=== PATIENT | female | born 1985 | race Caucasian/White ===

== ENCOUNTER 2017-01-23 09:57 | Emergency (ER) | payer BC ==
[~2017-01-23] VITALS: Ht 160 cm; Wt 54.0 kg
[2017-01-23 10:00] VITALS: BP 120/74; PULSE 115; RESP 16; TEMP 98.4; O2SAT 96
--- NOTE | 2017-01-23 10:09 | PD ---
HPI Chief Complaint: GI Complaint Time Seen by Provider: 10:09 Travel History International Travel<30 days: No Contact w/Intl Traveler<30days: No Traveled to known affect area: No History of Present Illness HPI 31-year-old female presents the emergency Department with history of one week of UTI symptoms which worsened yesterday with hematuria and discomfort. Patient called her primary care physician ordered labs but did not actually see the patient. She was treated empirically with Macrodantin. She states she was told she was not according to her labs yesterday. Patient states since taking the Macrodantin she's become more nauseous and complaining of generalized abdominal discomfort with some left flank pain. Patient states he took some Zofran she had for her daughter this morning and was able to take some ibuprofen with improvement of her overall symptoms. Patient has felt feverish with a fever 102 reported. Currently she is not febrile. Patient states she has not thrown up since taking the Zofran approximate 7:30 this morning. Patient states she has had some vaginal spotting but denies vaginal discharge or pelvic pain at this time. Patient denies any known drug allergies. PFSH Past Medical History ?: Not Social History Alcohol Use: Yes Tobacco Use: No Substance Use: No Allergies-Medications (Allergen,Severity, Reaction): Coded Allergies: No Known Allergies (Unverified , 01/23/17) Reported Meds & Prescriptions Reported Meds & Active Scripts Active Zofran (Ondansetron HCl) 4 Mg Tab 4 Mg PO Q6HR PRN Cephalexin 500 Mg Cap 500 Mg PO Q8H Reported Fluoxetine (Fluoxetine HCl) 10 Mg Tab 10 Mg PO DAILY Macrobid (Nitrofurantoin Monoh/Nitrofur Macro) 100 Mg Cap 100 Mg PO BID Review of Systems Except as stated in HPI: all other systems reviewed are Neg General / Constitutional: Positive: Fever, Chills Eyes: No: Visual changes HENT: No: Headaches, Vertigo, Lightheadedness, Sore Throat, Rhinitis, Rhinorrhea, Congestion, Nosebleed, Neck Stiffness, Neck Pain, Ear Discharge, Earache Cardiovascular: No: Chest Pain or Discomfort Respiratory: No: Shortness of Breath Gastrointestinal: Positive: Nausea, Vomiting, Abdominal Pain (previously but now improved.), No: Diarrhea Genitourinary: Positive: Dysuria, Hematuria, Flank Pain (mild left flank.), Vaginal Bleeding, No: Pelvic Pain Musculoskeletal: No: Pain Skin: No Rash Neurologic: No: Weakness Psychiatric: No: Depression Endocrine: No: Polydipsia Hematologic/Lymphatic: No: Easy Bruising Physical Exam Narrative GENERAL: Patient appears in mild distress. SKIN: Warm and dry. Normal color. Normal turgor. HEAD: Atraumatic. Normocephalic. EYES: Pupils equal and round. No scleral icterus. No injection or drainage. ENT: No nasal bleeding or discharge. Mucous membranes pink and moist. TMs are clear. Pharynx is normal. Airway is patent. NECK: Trachea midline. Supple and nontender. CARDIOVASCULAR: Tachycardic rate and normal rhythm. No murmurs gallops or rubs. RESPIRATORY: No accessory muscle use. Clear to auscultation. Breath sounds equal bilaterally. GASTROINTESTINAL: Abdomen soft, I'll generalized tenderness, nondistended. Hepatic and splenic margins not palpable. No CVA tenderness at this time. MUSCULOSKELETAL: Extremities without clubbing, cyanosis, or edema. No obvious deformities. NEUROLOGICAL: Awake and alert. No obvious cranial nerve deficits. Motor grossly within normal limits. Five out of 5 muscle strength in the arms and legs. Normal speech. PSYCHIATRIC: Appropriate mood and affect; insight and judgment normal. Data Data Last Documented VS Vital Signs Date Time Temp Pulse Resp B/P Pulse Ox O2 Delivery O2 Flow Rate FiO2 01/23/17 11:00 87 20 111/72 99 Room Air 01/23/17 10:00 98.4 Orders Complete Blood Count With Diff (01/23/17 10:14) Comprehensive Metabolic Panel (01/23/17 10:14) Lipase (01/23/17 10:14) Lactic Acid (01/23/17 10:14) Prothrombin Time / Inr (Pt) (01/23/17 10:14) Act Partial Throm Time (Ptt) (01/23/17 10:14) Urinalysis - C+S If Indicated (01/23/17 10:14) Iv Access Insert/Monitor (01/23/17 10:14) Ecg Monitoring (01/23/17 10:14) Oximetry (01/23/17 10:14) NPO (01/23/17 10:14) Ondansetron Inj (Zofran Inj) (01/23/17 10:15) Sodium Chlor 0.9% 1000 Ml Inj (Ns 1000 M (01/23/17 10:14) Sodium Chloride 0.9% Flush (Ns Flush) (01/23/17 10:15) Ed Urine Pregnancytest Poc (01/23/17 10:14) Ceftriaxone Inj (Rocephin Inj) (01/23/17 10:15) Labs Laboratory Tests Test 01/23/17 01/23/17 01/23/17 10:40 10:41 10:45 White Blood Count 15.6 TH/MM3 Red Blood Count 4.32 MIL/MM3 Hemoglobin 12.4 GM/DL Hematocrit 39.1 % Mean Corpuscular Volume 90.5 FL Mean Corpuscular Hemoglobin 28.7 PG Mean Corpuscular Hemoglobin 31.7 % Concent Red Cell Distribution Width 13.3 % Platelet Count 169 TH/MM3 Mean Platelet Volume 8.3 FL Neutrophils (%) (Auto) 86.0 % Lymphocytes (%) (Auto) 4.2 % Monocytes (%) (Auto) 9.5 % Eosinophils (%) (Auto) 0.0 % Basophils (%) (Auto) 0.3 % Neutrophils # (Auto) 13.4 TH/MM3 Lymphocytes # (Auto) 0.7 TH/MM3 Monocytes # (Auto) 1.5 TH/MM3 Eosinophils # (Auto) 0.0 TH/MM3 Basophils # (Auto) 0.0 TH/MM3 CBC Comment DIFF FINAL Differential Comment Prothrombin Time 11.3 SEC Prothromb Time International 1.0 RATIO Ratio Activated Partial 31.1 SEC Thromboplast Time Sodium Level 138 MEQ/L Potassium Level 3.5 MEQ/L Chloride Level 103 MEQ/L Carbon Dioxide Level 24.9 MEQ/L Anion Gap 10 MEQ/L Blood Urea Nitrogen 7 MG/DL Creatinine 0.75 MG/DL Estimat Glomerular Filtration 90 ML/MIN Rate Random Glucose 154 MG/DL Calcium Level 8.8 MG/DL Total Bilirubin 0.5 MG/DL Aspartate Amino Transf 8 U/L (AST/SGOT) Alanine Aminotransferase 13 U/L (ALT/SGPT) Alkaline Phosphatase 55 U/L Total Protein 7.6 GM/DL Albumin 3.9 GM/DL Lipase 74 U/L Lactic Acid Level 1.1 mmol/L Urine Color LIGHT-YELLOW Urine Turbidity HAZY Urine pH 6.5 Urine Specific [place] 1.005 Urine Protein NEG mg/dL Urine Glucose (UA) NEG mg/dL Urine Ketones TRACE mg/dL Urine Occult Blood SMALL Urine Nitrite NEG Urine Bilirubin NEG Urine Urobilinogen LESS THAN 2.0 MG/DL Urine Leukocyte Esterase TRACE Urine RBC 2 /hpf Urine WBC 4 /hpf Urine Squamous Epithelial 4 /hpf Cells Urine Bacteria OCC /hpf Microscopic Urinalysis Comment CULT NOT INDICATED MDM Medical Decision Making Medical Screen Exam Complete: Yes Emergency Medical Condition: Yes Differential Diagnosis . Urinary tract infection. Medication reaction. Nausea/vomiting. Pyelonephritis. Gastroenteritis. Narrative Course Patient is medically stable at time of exam. Labs ordered including CBC, CMP, lipase, lactic acid, PT PTT and INR, and urinalysis. Urine is ordered. IV access is obtained patient is given 1000 mg normal saline bolus. Patient is given 1 g Zofran IV as well as 1000 mg Rocephin IV. Urine appears within normal limits except for some bacteria and small amount of leukocyte esterase. Culture was not place. CBC showed leukocytosis of 15.3. CMP, lipase, and lactic acid were all within normal limits. Patient is felt stable for discharge. Patient will be treated with cephalexin 500 mg 3 times a day 7 days. Patient is to discontinue her Macrodantin. Patient also given Zofran 4 mg every 6 hours when necessary nausea vomiting #12. Patient should rest and push fluids and follow with her primary care physician as needed. Diagnosis Primary Impression: Urinary tract infection Qualified Code: N30.00 - Acute cystitis without hematuria Additional Impression: Nausea and vomiting Qualified Code: R11.2 - Non-intractable vomiting with nausea, unspecified vomiting type Referrals: Primary Care Physician Patient Instructions: Acute Nausea and Vomiting (ED), Dysuria (ED), General Instructions Additional Instructions: Urine appears within normal limits except for some bacteria and small amount of leukocyte esterase. Culture was not place. CBC showed leukocytosis of 15.3. CMP, lipase, and lactic acid were all within normal limits. Patient is felt stable for discharge. Patient will be treated with cephalexin 500 mg 3 times a day 7 days. Patient is to discontinue her Macrodantin. Patient also given Zofran 4 mg every 6 hours when necessary nausea vomiting #12. Patient should rest and push fluids and follow with her primary care physician as needed. Med/Other Pt SpecificInfo: Prescription(s) given, Med Stopped Scripts Ondansetron (Zofran)4 Mg Tab4 Mg PO Q6HR PRN (NAUSEA OR VOMITING) #12 TAB Prov:Ankita Erickson MD 01/23/17 Cephalexin 500 Mg [id number] Mg PO Q8H #21 CAP Prov:Ankita Erickson MD 01/23/17 Disposition: 01 DISCHARGE HOME Condition: Stable Aneudy Chirinos Jan 23, 2017 10:09
[2017-01-23] MEDS ORDERED: SODIUM CHLOR 0.9% 1000 ML INJ 1,000 ML IV SCH (10:14)
[2017-01-23] MEDS ORDERED: ONDANSETRON HCL 4 MG/2 ML VIAL IVP ONE (10:15)
[2017-01-23] MEDS ORDERED: SODIUM CHLORIDE 0.9% FLUSH 10 ML FLUSH IV FLUSH PRN (10:15)
[2017-01-23] MEDS ORDERED: cefTRIAXone INJ 1,000 MG in SODIUM CHLORIDE 0.9% INJ 50 ML IV ONE (10:15)
[2017-01-23] MEDS ORDERED: FLUO10TA PO (10:55)
[2017-01-23] MEDS ORDERED: MACR100C2 PO (10:55)
[2017-01-23 11:00] VITALS: BP 111/72; PULSE 87; RESP 20; O2SAT 99
[2017-01-23 11:23] LABS: AUTOMATED NEUTROPHIL # 13.4 TH/MM3 (1.8-7.7); BASOPHIL % 0.3 % (0.0-2.0); HEMATOCRIT 39.1 % (35.0-46.0); HEMO FLAGS DIFF FINAL; LYMPH % 4.2 % (9.0-44.0); LYMPHOCYTE # 0.7 TH/MM3 (1.0-4.8); MEAN CELL VOLUME 90.5 FL (80.0-100.0); MEAN CORPUSCULAR HEMOGLOBIN 28.7 PG (27.0-34.0); MEAN CORPUSCULAR HGB CONC 31.7 % (32.0-36.0); MONO % 9.5 % (0.0-8.0); PLATELET COUNT 169 TH/MM3 (150-450); RED BLOOD COUNT 4.32 MIL/MM3 (4.00-5.30); RED CELL DISTRIBUTION WIDTH 13.3 % (11.6-17.2); WHITE BLOOD COUNT 15.6 TH/MM3 (4.0-11.0)
[2017-01-23 11:31] LABS: BACTERIA, URINE OCC /hpf; BLOOD, URINE SMALL (NEG); COMMENT (UR) CULT NOT INDICATED; CULTURE IF INDICATED CULT NOT INDICATED; GLUCOSE,URINE NEG (NEG); KETONE, URINE TRACE mg/dL (NEG); NITRITE,URINE NEG (NEG); PH, URINE 6.5 (5.0-8.5); SQUAMOUS EPITHELIAL CELL URINE 4 /hpf (0-5); URINE COLOR LIGHT-YELLOW (YELLW/STRAW)
[2017-01-23 11:36] LABS: APTT (PATIENT) 31.1 SEC (24.3-30.1); PROTHROMBIN TIME - PATIENT 11.3 SEC (9.8-11.6)
[2017-01-23 11:51] LABS: ALT (GPT) 13 U/L (10-53); ANION GAP 10 MEQ/L (5-15); AST (GOT) 8 U/L (15-37); BICARBONATE 24.9 MEQ/L (21.0-32.0); BLOOD UREA NITROGEN 7 MG/DL (7-18); CHLORIDE 103 MEQ/L (98-107); GLOMERULAR FILTRATION RATE 90 ML/MIN (>89); POTASSIUM 3.5 MEQ/L (3.5-5.1); SODIUM (NA) 138 MEQ/L (136-145)
[2017-01-23 11:53] LABS: ALKALINE PHOSPHATASE 55 U/L (45-117); TOTAL BILIRUBIN ADULT 0.5 MG/DL (0.2-1.0)
[2017-01-23] MEDS ORDERED: ZOFR4TAB PO (11:58)
[2017-01-23] MEDS ORDERED: CEPH500C PO (11:58)
== END 2017-01-23 12:17 | disposition home or self-care (01) ==
LOC: NEPD 09:57
DX: N39.0 Urinary tract infection, site not specified (principal); R11.2 Nausea with vomiting, unspecified; R50.9 Fever, unspecified; D72.829 Elevated white blood cell count, unspecified; Z79.899 Other long term (current) drug therapy
CPT/HCPCS: 80053; 81001; 83605; 83690; 84703; 85025; 85610; 85730; 96365; 96375; J0696; J2405; J7030

== ENCOUNTER 2017-01-23 16:37 | Inpatient (IN) | payer BC ==
[~2017-01-23] VITALS: Ht 160 cm; Wt 53.7 kg
[~2017-01-23 16:37] MED LIST: CEPH500C PO; FLUO10TA PO; MACR100C2 PO; ZOFR4TAB PO
[2017-01-23 16:40] VITALS: BP 145/79; PULSE 118; RESP 21; TEMP 100.6; O2SAT 100
--- NOTE | 2017-01-23 16:47 | PD ---
Physical Exam Time Seen by Provider: 16:46 Narrative 31 y/o female here with fever of 102, n/v. Seen earlier today, dx with UTI. Vital signs reviewed. Seen at triage desk. Awaiting bed placement. Data Data Last Documented VS Vital Signs Date Time Temp Pulse Resp B/P Pulse Ox O2 Delivery O2 Flow Rate FiO2 01/23/17 16:40 100.6 118 21 145/79 100 MDM Medical Record Reviewed: Yes Supervised Visit with SHEILA: Nate Nova Jan 23, 2017 16:47
[2017-01-23 18:27] VITALS: TEMP 102.8
[2017-01-23] MEDS ORDERED: KETOROLAC TROMETHAMINE 30 MG/ML (IVP) VIAL IV PUSH ONE (18:30)
[2017-01-23] MEDS ORDERED: SODIUM CHLOR 0.9% 1000 ML INJ 1,000 ML IV ONE (18:30)
[2017-01-23] MEDS ORDERED: METOCLOPRAMIDE HCL 10 MG/2 ML VIAL IV PUSH ONE (18:30)
--- NOTE | 2017-01-23 19:01 | RADRPT ---
EXAM DATE/TIME: 01/23/2017 18:30 [facility] COMPARISON: No previous studies available for comparison. INDICATIONS : Abdominal pain and cramping with nausea, vomitting, fever, cramping, and vaginal bleeding. MEDICAL HISTORY : None. SURGICAL HISTORY : None. ENCOUNTER: Initial ACUITY: 1 week PAIN SCORE: 5/10 LOCATION: Bilateral lower abdomen. FINDINGS: A single view of the chest demonstrates the lungs to be symmetrically aerated without evidence of mas s, infiltrate or effusion. The cardiomediastinal contours are unremarkable. Osseous structures are intact. CONCLUSION: No acute disease. Ilya Cho MD on January 23, 2017 at 18:58 Board Certified Radiologist. This report was verified electronically.
[2017-01-23] MEDS ORDERED: IOHEXOL 350 MG/ML 10 ML VIAL (for RAD DIAG) IV ONE (19:04)
[2017-01-23 19:05] VITALS: O2SAT 97
[2017-01-23 19:11] LABS: AUTOMATED NEUTROPHIL # 13.1 TH/MM3 (1.8-7.7); HEMO FLAGS DIFF FINAL; LYMPHOCYTE # 0.6 TH/MM3 (1.0-4.8); MEAN CELL VOLUME 90.5 FL (80.0-100.0); MEAN CORPUSCULAR HEMOGLOBIN 29.3 PG (27.0-34.0); MEAN CORPUSCULAR HGB CONC 32.4 % (32.0-36.0); MONO % 10.6 % (0.0-8.0); NEUT % 85.4 % (16.0-70.0); PLATELET COUNT 156 TH/MM3 (150-450); RED BLOOD COUNT 3.75 MIL/MM3 (4.00-5.30); RED CELL DISTRIBUTION WIDTH 12.8 % (11.6-17.2); WHITE BLOOD COUNT 15.3 TH/MM3 (4.0-11.0)
[2017-01-23 19:25] LABS: ANION GAP 9 MEQ/L (5-15); AST (GOT) 8 U/L (15-37); BLOOD UREA NITROGEN 6 MG/DL (7-18); CHLORIDE 103 MEQ/L (98-107); GLOMERULAR FILTRATION RATE 106 ML/MIN (>89); POTASSIUM 3.2 MEQ/L (3.5-5.1); SODIUM (NA) 134 MEQ/L (136-145)
[2017-01-23 19:26] LABS: ALT (GPT) 11 U/L (10-53)
--- NOTE | 2017-01-23 19:26 | RADRPT ---
EXAM DATE/TIME: 01/23/2017 19:00 1 [facility] COMPARISON: No previous studies available for comparison. INDICATIONS : Urinary tract infection for one week; fever and vaginal bleeding. IV CONTRAST: 92 cc Omnipaque 350 (iohexol) IV ORAL CONTRAST: No oral contrast ingested. RADIATION DOSE: CTDIvol (mGy) MEDICAL HISTORY : None SURGICAL HISTORY : None. ENCOUNTER: Initial ACUITY: 1 day PAIN SCALE: 5/10 LOCATION: abdomen TECHNIQUE: Volumetric scanning of the abdomen and pelvis was performed. Using automated exposure control and ad justment of the mA and/or kV according to patient size, radiation dose was kept as low as reasonably achievable to obtain optimal diagnostic quality images. DICOM format image data is available electro nically for review and comparison. FINDINGS: LOWER LUNGS: The visualized lower lungs are clear. LIVER: Homogeneous density without lesion. There is no dilation of the biliary tree. No calcified gallston es. SPLEEN: Normal in size and shape with benign-appearing low-attenuation 1 cm cystic lesion.. PANCREAS: Within normal limits. KIDNEYS: The right kidney is normal in size, shape and enhancement. The left kidney is mildly prominent with m ultiple subtle low attenuation areas noted which are indistinct. These mostly involve the upper and m id kidney. There is no evidence of obstruction. There are questionable tiny renal calculi left greate r than right. There are no perinephric collections. The visualized portions of the ureters are unrema rkable. ADRENAL GLANDS: Within normal limits. VASCULAR: There is no aortic aneurysm. BOWEL/MESENTERY: The stomach, small bowel, and colon demonstrate no acute abnormality. There is no free intraperitone al air or fluid. ABDOMINAL WALL: Within normal limits. RETROPERITONEUM: There is no lymphadenopathy. BLADDER: No wall thickening or mass. REPRODUCTIVE: There is a small 1.3 x 1 cm left ovarian cyst. The uterus and right adnexa are unremarkable. INGUINAL: There is no lymphadenopathy or hernia. MUSCULOSKELETAL: Within normal limits for patient age. CONCLUSION: 1. Abnormal left kidney with multiple ill-defined low attenuation areas most characteristic of infect ion and possible bacterial nephronia. There is no perinephric collection or obstruction. 2. Questionable minute renal oculi which may be artifactual. 3. Small left ovarian cyst. Ilya Cho MD on January 23, 2017 at 19:19 Board Certified Radiologist. This report was verified electronically.
[2017-01-23 19:28] LABS: ALKALINE PHOSPHATASE 47 U/L (45-117); TOTAL BILIRUBIN ADULT 0.4 MG/DL (0.2-1.0)
[2017-01-23] MEDS ORDERED: VANCOMYCIN INJ 1,000 MG in SODIUM CHLOR 0.9% 250 ML INJ 250 ML IV ONE (20:00)
[2017-01-23] MEDS ORDERED: PIPERACIL-TAZO 4.5 GM PREMIX 100 ML IV ONE (20:00)
--- NOTE | 2017-01-23 20:09 | PD ---
HPI Chief Complaint: Fever Time Seen by Provider: 18:20 Travel History International Travel<30 days: No Contact w/Intl Traveler<30days: No Traveled to known affect area: No History of Present Illness HPI Patient is a 31-year-old female presents emergency Department with fever and aches. Patient also states that she's been having intermittent dysuria as well as hematuria, she states that intermittently she's been having some pain particularly in the left side of her back. Patient states she's noticed fever to 102 at home. Patient was here earlier today and was seen another provider, she was given a dose of Rocephin at that time she did have urinary tract infection. Cornea patient looked well and her vital signs were fairly unremarkable. She did have a white count of 15,000 but ultimately was discharged home on Keflex. She states when she got home her fever returned and she started feeling fairly lousy and decided to come back and be seen. She is coming by multiple family members at this time. States symptoms are going on for approximately a week and she initially treated a urinary tract infection [id number] with Azo. PFSH Past Medical History Diminished Hearing: No Reproductive: Yes (PT TAKES FLUOXETINE FOR PMDD ) Immunizations Current: No ?: Not Past Surgical History Surgical History: No Previous Surgery Social History Alcohol Use: Yes (OCC) Tobacco Use: No Substance Use: No Allergies-Medications (Allergen,Severity, Reaction): Coded Allergies: Nitrofurantoin (Verified Adverse Reaction, Unknown, vomiting, 01/23/17) diarrhea Reported Meds & Prescriptions Reported Meds & Active Scripts Active Zofran (Ondansetron HCl) 4 Mg Tab 4 Mg PO Q6HR PRN Cephalexin 500 Mg Cap 500 Mg PO Q8H Reported Fluoxetine (Fluoxetine HCl) 10 Mg Tab 10 Mg PO DAILY Macrobid (Nitrofurantoin Monoh/Nitrofur Macro) 100 Mg Cap 100 Mg PO BID Review of Systems Except as stated in HPI: all other systems reviewed are Neg Physical Exam Narrative GENERAL: Well-developed well-nourished appears quite uncomfortable. SKIN: Focused skin assessment warm/dry. HEAD: Atraumatic. Normocephalic. EYES: Pupils equal and round. No scleral icterus. No injection or drainage. ENT: No nasal bleeding or discharge. Mucous membranes pink and moist. NECK: Trachea midline. No JVD. CARDIOVASCULAR: Regular rate and rhythm. No murmur appreciated. RESPIRATORY: No accessory muscle use. Clear to auscultation. Breath sounds equal bilaterally. GASTROINTESTINAL: Abdomen soft, non-tender, nondistended. Hepatic and splenic margins not palpable. MUSCULOSKELETAL: No obvious deformities. No clubbing. No cyanosis. No edema. NEUROLOGICAL: Awake and alert. No obvious cranial nerve deficits. Motor grossly within normal limits. Normal speech. PSYCHIATRIC: Appropriate mood and affect; insight and judgment normal. Data Data Last Documented VS Vital Signs Date Time Temp Pulse Resp B/P Pulse Ox O2 Delivery O2 Flow Rate FiO2 01/23/17 19:05 97 Room Air 01/23/17 18:27 102.8 01/23/17 16:40 118 21 145/79 Orders Complete Blood Count With Diff (01/23/17 18:29) Comprehensive Metabolic Panel (01/23/17 18:29) Lactic Acid Sepsis Protocol (01/23/17 18:29) Lipase (01/23/17 18:29) Urinalysis - C+S If Indicated (01/23/17 18:29) Blood Culture (01/23/17 18:29) Chest, Single Ap (01/23/17 18:29) Blood Glucose (01/23/17 18:29) Ecg Monitoring (01/23/17 18:29) Iv Access Insert/Monitor (01/23/17 18:29) Oximetry (01/23/17 18:29) Oxygen Administration (01/23/17 18:29) Ct Abd/Pel W Iv Contrast(Rout) (01/23/17 18:29) Sodium Chlor 0.9% 1000 Ml Inj (Ns 1000 M (01/23/17 18:30) Ketorolac Inj (Toradol Inj) (01/23/17 18:30) Metoclopramide Inj (Reglan Inj) (01/23/17 18:30) Iohexol 350 Inj (Omnipaque 350 Inj) (01/23/17 19:04) Vancomycin Inj (Vancomycin Inj) (01/23/17 20:00) Piperacil-Tazo 4.5 Gm Premix (Zosyn 4.5 (01/23/17 20:00) Admit Order (Ed Use Only) (01/23/17 ) Labs Laboratory Tests Test 01/23/17 01/23/17 18:55 19:38 White Blood Count 15.3 TH/MM3 Red Blood Count 3.75 MIL/MM3 Hemoglobin 11.0 GM/DL Hematocrit 34.0 % Mean Corpuscular Volume 90.5 FL Mean Corpuscular Hemoglobin 29.3 PG Mean Corpuscular Hemoglobin 32.4 % Concent Red Cell Distribution Width 12.8 % Platelet Count 156 TH/MM3 Mean Platelet Volume 8.0 FL Neutrophils (%) (Auto) 85.4 % Lymphocytes (%) (Auto) 4.0 % Monocytes (%) (Auto) 10.6 % Eosinophils (%) (Auto) 0.0 % Basophils (%) (Auto) 0.0 % Neutrophils # (Auto) 13.1 TH/MM3 Lymphocytes # (Auto) 0.6 TH/MM3 Monocytes # (Auto) 1.6 TH/MM3 Eosinophils # (Auto) 0.0 TH/MM3 Basophils # (Auto) 0.0 TH/MM3 CBC Comment DIFF FINAL Differential Comment Sodium Level 134 MEQ/L Potassium Level 3.2 MEQ/L Chloride Level 103 MEQ/L Carbon Dioxide Level 22.0 MEQ/L Anion Gap 9 MEQ/L Blood Urea Nitrogen 6 MG/DL Creatinine 0.65 MG/DL Estimat Glomerular Filtration 106 ML/MIN Rate Random Glucose 168 MG/DL Lactic Acid Level 1.2 mmol/L Calcium Level 8.3 MG/DL Total Bilirubin 0.4 MG/DL Aspartate Amino Transf 8 U/L (AST/SGOT) Alanine Aminotransferase 11 U/L (ALT/SGPT) Alkaline Phosphatase 47 U/L Total Protein 6.7 GM/DL Albumin 3.5 GM/DL Lipase 61 U/L Urine Color YELLOW Urine Turbidity CLEAR Urine pH 7.5 Urine Specific [place] 1.045 Urine Protein 30 mg/dL Urine Glucose (UA) 70 mg/dL Urine Ketones 150 mg/dL Urine Occult Blood TRACE Urine Nitrite NEG Urine Bilirubin NEG Urine Urobilinogen LESS THAN 2.0 MG/DL Urine Leukocyte Esterase NEG Urine RBC 20 /hpf Urine WBC 5 /hpf Urine Squamous Epithelial 5 /hpf Cells Microscopic Urinalysis Comment CATH-CULT NOT IND MDM Medical Decision Making Medical Screen Exam Complete: Yes Emergency Medical Condition: Yes Differential Diagnosis Sepsis, kidney infection, kidney infarct, urinary tract infection, acute abdomen , Narrative Course Patient roomed in the emergency department, on her return visit and now she is tachycardic febrile has tachypnea and with her white count she has 4 out of 4 Sirs criteria. She was given a dose of Rocephin prior to leaving on her previous admission to the emergency department. CAT scan is indicated at this time: Last 24 hours Impressions Chest X-Ray 01/23/[id number] Signed Impressions: Service Date/Time: Monday, January 23, 2017 18:30 - CONCLUSION: No acute disease. Ilya Cho MD Abdomen/Pelvis CT [id number]/23/[id number] Signed Impressions: Service Date/Time: Monday, January 23, 2017 19:00 - CONCLUSION: 1. Abnormal left kidney with multiple ill-defined low attenuation areas most characteristic of infection and possible bacterial nephronia. There is no perinephric collection or obstruction. 2. Questionable minute renal oculi which may be artifactual. 3. Small left ovarian cyst. Ilya Cho MD Patient antibiotic therapy was broadened to include vancomycin and Zosyn, she was given Toradol and Reglan in the emergency department on my revisit she is much improved, her pain is under control and she is actually sleeping but easily arousable. I discussed the results with her and recommended admission to the hospital and she is agreeable. The patient was given 1 L normal saline, her lactic acid was normal precluding the need for aggressive fluid resuscitation. She was discussed with Dr. Stokes for admission and he is agreeable. Critical Care Narrative Aggregate critical care time was 35 minutes. Time to perform other separately billable procedures was not included in the critical care time. My time did not include minutes spent treating any other patients simultaneously or on activities that did not directly contribute to the patient's treatment. The services I provided to this patient were to treat and/or prevent clinically significant deterioration that could result in: , disability, organ failure. I provided critical care services requiring my management, as noted below: Chart data review, documentation time, medication orders and management, vital sign assessments/reviewing monitor data, ordering and reviewing lab tests, ordering and interpreting/reviewing x-rays and diagnostic studies, care of the patient and discussion of the patient with the admitting physicians. Diagnosis Primary Impression: Sepsis Additional Impression: Pyelonephritis Admitting Information Admitting Physician Requests: Admit Condition: Akira Borja MD Jan 23, 2017 20:09
[2017-01-23 20:13] LABS: BLOOD, URINE TRACE (NEG); GLUCOSE,URINE 70 mg/dL (NEG); KETONE, URINE 150 mg/dL (NEG); NITRITE,URINE NEG (NEG); PH, URINE 7.5 (5.0-8.5); SQUAMOUS EPITHELIAL CELL URINE 5 /hpf (0-5); URINE COLOR YELLOW (YELLW/STRAW)
[2017-01-23 20:21] LABS: COMMENT (UR) CATH-CULT NOT IND; CULTURE IF INDICATED CATH CULTURE NOT IND
[2017-01-23] MEDS ORDERED: Vancomycin Consult Pharmacy 1 EA OTHER SCH (21:15)
[2017-01-23] MEDS ORDERED: ACETAMINOPHEN 500 MG CPLT PO ONE (21:15)
[2017-01-23] MEDS ORDERED: SENNOSIDES 8.6 MG TAB PO PRN (21:15)
[2017-01-23] MEDS ORDERED: LACTULOSE SYRUP 20 GM/30 ML CUP PO PRN (21:15)
[2017-01-23] MEDS ORDERED: VANCOMYCIN INJ 1,000 MG in SODIUM CHLOR 0.9% 250 ML INJ 250 ML IV SCH (21:15)
[2017-01-23] MEDS ORDERED: SODIUM CHLORIDE 0.9% FLUSH 10 ML FLUSH IV FLUSH PRN (21:15)
[2017-01-23] MEDS ORDERED: BISACODYL 10 MG SUPP RECTAL PRN (21:15)
[2017-01-23] MEDS ORDERED: POTASSIUM CHLORIDE 10 MEQ CONTROLLED RELEASE TAB PO ONE ×2 (21:15→22:00)
[2017-01-23] MEDS ORDERED: MAGNESIUM HYDROXIDE SUSP 30 ML CUP PO PRN (21:15)
[2017-01-23 23:08] VITALS: BP 112/62; PULSE 96; TEMP 98.2; O2SAT 98
--- NOTE | 2017-01-23 23:27 | HHI.HP ---
[facility] No Primary Care Physician Admission Diagnosis Sepsis, Kidney infection Diagnoses: Chief Complaint: fever Travel History International Travel<30 Days: No Contact w/Intl Traveler <30 Da: No Traveled to Known Affected Are: No Sepsis Criteria SIRS Criteria (2 or more): Temp > 100.9 or < 96.8, Heart rate over 90, RR > 20 or PaCO2 < 32, WBC > 42316, < 4000 or > 10% bands Sepsis Criteria (SIRS+source): Infect source susp/known Criteria Outcome: Meets sepsis criteria History of Present Illness This is a 31-year-old female with past medical history of multiple UTIs in the past. The patient states that approximately 1 week she started having fever and sweats the night, noticed some spotting from her vagina and initially thought that she could be , however she called her PMD who sent her to an outpatient lab to get a test and it was negative. The patient states that she also noticed some hematuria. She was started on Macrobid a couple days ago by her primary care physician, however she started feeling very nauseous, vomited a couple times, had fevers and chills. The patient presented to the emergency department earlier today and she was prescribed cephalexin and discharged home after she was not febrile, however she went home and starting feeling worst reason why she decided to come back. The patient otherwise denies any cough, chest pain, short of breath, feels nauseous but this has improved, denies abdominal pain. Review of Systems As per history of present illness, other systems reviewed by me and negative Past Family Social History Past Medical History History of multiple UTIs in the past but Depression Pre-menstrual syndrome Past Surgical History Denies Reported Medications Zofran (Ondansetron HCl) 4 Mg Tab 4 Mg PO Q6HR PRN Cephalexin 500 Mg Cap 500 Mg PO Q8H Fluoxetine (Fluoxetine HCl) 10 Mg Tab 10 Mg PO DAILY Macrobid (Nitrofurantoin Monoh/Nitrofur Macro) 100 Mg Cap 100 Mg PO BID Allergies: Coded Allergies: Nitrofurantoin (Verified Adverse Reaction, Unknown, vomiting, 01/23/17) diarrhea Active Ordered Medications Current Medications Medications (Trade) Dose Ordered Sig/Arden Route Start Time Stop Time Status Last Admin (NS 1000 ml Inj) 1,000 ml @ 100 mls/hr Q10H IV 01/23/17 21:03 01/23/17 23:33 (NS Flush) 2 ml UNSCH PRN IV FLUSH 01/23/17 21:15 (NS Flush) 2 ml BID IV FLUSH 01/24/17 09:00 (Tylenol) 650 mg Q4H PRN PO 01/23/17 21:15 01/24/17 04:44 (Zofran Inj) 4 mg Q6H PRN IVP 01/23/17 21:15 01/24/17 00:35 (Lovenox Inj) 40 mg HS SQ 01/23/17 21:45 01/23/17 23:30 (Selina-Colace) 1 tab BID PO 01/24/17 09:00 (Milk Of Magnesia Liq) 30 ml Q12H PRN PO 01/23/17 21:15 (Senokot) 17.2 mg Q12H PRN PO 01/23/17 21:15 (Dulcolax Supp) 10 mg DAILY PRN RECTAL 01/23/17 21:15 Lactulose 30 ml 30 ml DAILY PRN PO 01/23/17 21:15 Pharmacy Profile Note 0 ml @ 0 mls/hr UNSCH OTHER 01/23/17 21:15 (Zosyn 4.5 Gm Premix) 100 ml @ 200 mls/hr Q8H IV 01/24/17 04:00 01/24/17 04:40 Family History Mother also has problems with UTI Grandmother had breast cancer and patient has an aunt with breast cancer as well. Social History The patient denies smoking, the patient drinks alcohol occasionally The patient denies any illicit drug use. The patient is and has a daughter. Physical Exam Vital Signs Vital Signs Date Time Temp Pulse Resp B/P Pulse Ox O2 Delivery O2 Flow Rate FiO2 01/23/17 23:08 98.2 96 112/62 98 Room Air 01/23/17 19:05 97 Room Air 01/23/17 19:05 Room Air 01/23/17 18:27 102.8 01/23/17 16:40 100.6 118 21 145/79 100 Physical Exam GENERAL: This is a well-nourished, well-developed patient, in no apparent distress. SKIN: No rashes, ecchymoses or lesions. Cool and dry. HEAD: Atraumatic. Normocephalic. No temporal or scalp tenderness. EYES: Pupils equal round and reactive. Extraocular motions intact. No scleral icterus. No injection or drainage. ENT: Nose without bleeding, purulent drainage or septal hematoma. Throat without erythema, tonsillar hypertrophy or exudate. Uvula midline. Airway patent. NECK: Trachea midline. No JVD or lymphadenopathy. Supple, nontender, no meningeal signs. CARDIOVASCULAR: Regular rate and rhythm without murmurs, gallops, or rubs. RESPIRATORY: Clear to auscultation. Breath sounds equal bilaterally. No wheezes , rales, or rhonchi. GASTROINTESTINAL: Abdomen soft, non-tender, nondistended. No hepato-splenomegaly , or palpable masses. No guarding. MUSCULOSKELETAL: Extremities without clubbing, cyanosis, or edema. No joint tenderness, effusion, or edema noted. No calf tenderness. Negative Homans sign bilaterally. NEUROLOGICAL: Awake and alert. Cranial nerves II through XII intact. Motor and sensory grossly within normal limits. Five out of 5 muscle strength in all muscle groups. Normal speech. Laboratory Laboratory Tests Test 01/23/17 01/23/17 18:55 19:38 White Blood Count 15.3 Red Blood Count 3.75 Hemoglobin 11.0 Hematocrit 34.0 Mean Corpuscular Volume 90.5 Mean Corpuscular Hemoglobin 29.3 Mean Corpuscular Hemoglobin 32.4 Concent Red Cell Distribution Width 12.8 Platelet Count 156 Mean Platelet Volume 8.0 Neutrophils (%) (Auto) 85.4 Lymphocytes (%) (Auto) 4.0 Monocytes (%) (Auto) 10.6 Eosinophils (%) (Auto) 0.0 Basophils (%) (Auto) 0.0 Neutrophils # (Auto) 13.1 Lymphocytes # (Auto) 0.6 Monocytes # (Auto) 1.6 Eosinophils # (Auto) 0.0 Basophils # (Auto) 0.0 CBC Comment DIFF FINAL Differential Comment Sodium Level 134 Potassium Level 3.2 Chloride Level 103 Carbon Dioxide Level 22.0 Anion Gap 9 Blood Urea Nitrogen 6 Creatinine 0.65 Estimat Glomerular Filtration 106 Rate Random Glucose 168 Lactic Acid Level 1.2 Calcium Level 8.3 Total Bilirubin 0.4 Aspartate Amino Transf 8 (AST/SGOT) Alanine Aminotransferase 11 (ALT/SGPT) Alkaline Phosphatase 47 Total Protein 6.7 Albumin 3.5 Lipase 61 Urine Color YELLOW Urine Turbidity CLEAR Urine pH 7.5 Urine Specific [place] 1.045 Urine Protein 30 Urine Glucose (UA) 70 Urine Ketones 150 Urine Occult Blood TRACE Urine Nitrite NEG Urine Bilirubin NEG Urine Urobilinogen LESS THAN 2.0 Urine Leukocyte Esterase NEG Urine RBC 20 Urine WBC 5 Urine Squamous Epithelial 5 Cells Microscopic Urinalysis Comment CATH-CULT NOT IND Date/Time Procedure Status Source Growth 01/23/17 18:55 Aerobic Blood Culture Received Blood Peripheral Pending 01/23/17 18:55 Anaerobic Blood Culture Received Blood Peripheral Pending Result Diagram: 01/23/17185401/23/171854 Imaging Last Impressions Chest X-Ray 01/23/171828 Signed Impressions: Service Date/Time: Monday, January 23, 2017 18:30 - CONCLUSION: No acute disease. Ilya Cho MD Abdomen/Pelvis CT 01/23/171828 Signed Impressions: Service Date/Time: Monday, January 23, 2017 19:00 - CONCLUSION: 1. Abnormal left kidney with multiple ill-defined low attenuation areas most characteristic of infection and possible bacterial nephronia. There is no perinephric collection or obstruction. 2. Questionable minute renal oculi which may be artifactual. 3. Small left ovarian cyst. Ilya Cho MD Reviewed by pr Septic Shock Reassessment Heart: Regular rate and rhythm Lungs: Clear Skin: Warm Peripheral Pulses: Bounding Right Radial Bounding Left Radial Capillary Refill: <2 seconds Assessment and Plan Problem List: (1) Sepsis ICD Code: A41.9 Status: Acute Plan: Sepsis likely secondary to pyelonephritis and possible abscess. CT abdomen and pelvis as described above shows abnormal left kidney with multiple ill-defined low-attenuation areas most characteristic of infection and possible bacterial nephronia. Continue IV antibiotics, patient was given IV vancomycin and IV Zosyn which I will continue to administer as inpatient Continue supportive therapy with IV fluids, Tylenol and Zofran as needed. Follow-up blood cultures obtained in the emergency department. We'll consult infectious disease and urology. (2) Pyelonephritis ICD Code: N12 Status: Acute Plan: As above. (3) Nausea and vomiting ICD Code: R11.2 Status: Acute Plan: Likely related to pyelonephritis. Nausea has improved. Continue IV Zofran as needed for nausea. (4) Fever ICD Code: R50.9 Status: Acute Plan: Due to sepsis secondary to pyelonephritis. Continue to monitor vital signs. (5) Hypokalemia ICD Code: E87.6 Status: Acute Plan: Likely related to nutritional deficiency and poor oral intake secondary to nausea and vomiting. I will place and continue to monitor BMP. (6) Hyponatremia ICD Code: E87.1 Status: Acute Plan: Mild hyponatremia with a sodium of 134 Likely related to hypovolemic hyponatremia secondary to dehydration. Continue IV normal saline and continue to monitor BMP. Assessment and Plan GI prophylaxis:PPI DVT prophylaxis: SCDs, Lovenox subcutaneous. Code Status Full code Discussed Condition With Patient, ED physician. Physician Certification 2 Midnight Certification Type: Admission for Inpatient Services Order for Inpatient Services The services are ordered in accordance with Medicare regulations or non- Medicare payer requirements, as applicable. In the case of services not specified as inpatient-only, they are appropriately provided as inpatient services in accordance with the 2-midnight benchmark. Estimated LOS (days): 2 days is the estimated time the patient will need to remain in the hospital, assuming treatment plan goals are met and no additional complications. Post-Hospital Plan: Home Problem Qualifiers (1) Sepsis: Qualified Code: A41.9 - Sepsis, due to unspecified organism (2) Nausea and vomiting: Qualified Code: R11.2 - Non-intractable vomiting with nausea, unspecified vomiting type (3) Fever: Qualified Code: R50.9 - Fever, unspecified fever cause Pola Fitzpatrick MD Jan 23, 2017 23:27
[2017-01-23] MEDS: ENOXAPARIN SODIUM 40 MG/0.4 ML SYRINGE SQ SCH (23:30)
[2017-01-23] MEDS: SODIUM CHLOR 0.9% 1000 ML INJ 1,000 ML IV SCH (23:33)
[2017-01-24] VITALS (10 sets, daily range): BP systolic 101–128; BP diastolic 65–82; PULSE 1–110; RESP 16–19; TEMP 98.5–101.9; O2SAT 98–100
[2017-01-24] MEDS: ONDANSETRON HCL 4 MG/2 ML VIAL IVP PRN ×3 (00:35→17:58)
[2017-01-24] MEDS: PIPERACIL-TAZO 4.5 GM PREMIX 100 ML IV SCH ×2 (04:40→13:37)
[2017-01-24] MEDS: ACETAMINOPHEN 325 MG TAB PO PRN ×3 (04:44→20:33)
[2017-01-24] MEDS: SODIUM CHLOR 0.9% 1000 ML INJ 1,000 ML IV SCH ×4 (07:03→23:23)
[2017-01-24 07:36] LABS: AUTOMATED NEUTROPHIL # 10.5 TH/MM3 (1.8-7.7); BASOPHIL % 0.2 % (0.0-2.0); HEMATOCRIT 32.6 % (35.0-46.0); HEMO FLAGS DIFF FINAL; LYMPH % 8.4 % (9.0-44.0); LYMPHOCYTE # 1.1 TH/MM3 (1.0-4.8); MEAN CELL VOLUME 89.9 FL (80.0-100.0); MEAN CORPUSCULAR HEMOGLOBIN 28.8 PG (27.0-34.0); MONO % 9.7 % (0.0-8.0); NEUT % 81.7 % (16.0-70.0); PLATELET COUNT 145 TH/MM3 (150-450); RED BLOOD COUNT 3.62 MIL/MM3 (4.00-5.30); RED CELL DISTRIBUTION WIDTH 13.1 % (11.6-17.2); WHITE BLOOD COUNT 12.9 TH/MM3 (4.0-11.0)
[2017-01-24 08:00] LABS: CALCIUM-PROTEIN CORRECTED 7.8 MG/DL (8.5-10.1); POTASSIUM 3.7 MEQ/L (3.5-5.1); TOTAL BILIRUBIN ADULT 0.4 MG/DL (0.2-1.0)
[2017-01-24] MEDS: SODIUM CHLORIDE 0.9% FLUSH 10 ML FLUSH IV FLUSH SCH ×2 (08:49→20:35)
[2017-01-24] MEDS: FAMOTIDINE 20 MG TAB PO SCH ×2 (08:54→20:33)
[2017-01-24] MEDS: DOCUSATE SODIUM 50 MG/SENNA 8.6 MG TAB PO SCH ×2 (08:56→20:37)
[2017-01-24] MEDS ORDERED: VANCOMYCIN INJ 750 MG in SODIUM CHLOR 0.9% 250 ML INJ 250 ML IV SCH (11:00)
[2017-01-24 11:21] LABS: C. DIFF EPI 027 PRESUMPTIVE NEGATIVE (NEGATIVE); C. DIFF TOXIN PCR NEGATIVE (NEGATIVE)
--- NOTE | 2017-01-24 12:48 | MB ---
cc: AMY MADSEN MD DATE OF CONSULTATION: 01/24/2017 CHIEF COMPLAINT 1. Bacterial nephronia of her left kidney. 2. Left pyelonephritis 3. Recurrent UTIs. HISTORY OF PRESENT ILLNESS: This is a 31-year-old female with history of urinary tract infection in the past who presented to the [facility] emergency room last night with fever, chills, night sweats left side abdominal pain for the past week. A CT of the abdomen and pelvis, with IV contrast was done in the emergency room last night and was found to have an enlarged left kidney with multiple areas of low attenuation consistent with pyelonephritis and possible bacterial nephronia. She was subsequently found to also have a fever of over 102. She was admitted and started on IV antibiotics, urology was consulted. Her symptoms began about a week ago when she noticed started having some swelling of her vagina as well as occasional fever and night sweats. She had a test which was essentially negative, she also noticed some blood in her urine. She was started activated colace, by her primary care physician but she started feeling nauseous and vomited a couple of times and started having fevers and chills. She presented to the emergency department earlier yesterday where she was given Keflex and was discharged home, once she got home she started to feel like she had flu like symptoms, general malaise, fever of 102, chills and diarrhea, she came back to the emergency room for evaluation. Currently she feels better but she does have a headache. She had a low grade fever over night, she gets [id number] urinary tract infections a year. However, she states that her mother gets frequent urinary tract infections, she denies any history of kidney stones. She denies any dysuria, frequency, urgency at this time. REVIEW OF SYSTEMS See HPI otherwise all systems reviewed otherwise negative. PAST MEDICAL HISTORY: Depression. Urinary tract infection. SOCIAL HISTORY: None. HOME MEDICATIONS: Fluoxetine 10 mg p.o. daily. ALLERGIES Nitrofurantoin. HISTORY Mother had urinary tracts, denies any Genitourinary malignancies. SOCIAL HISTORY History of tobacco use but drinks alcohol socially. She is and has a daughter denies illicit drug use. She is unemployed. PHYSICAL EXAMINATION: VITAL SIGNS: T-max 102.8. T current 28.9, pulse 94, respiratory rate 18, Blood pressure 101/65, sating 99% on room air. IN GENERAL: In general she is alert and oriented times three. No apparent distress but does appear to be pale. She is pleasant and cooperative, appears her stated age. HEAD, EYES, EARS, NOSE, AND THROAT: Head is normocephalic, atraumatic. Eyes: No scleral icterus. Extraocular muscles intact. NECK: Neck is supple. Trachea is midline. No JVD. SKIN: No ulcers or rashes. Her mucous membranes are pink and moist. LUNGS: The lungs are clear to auscultation bilaterally. No wheezes, rales or rhonchi. HEART: Regular rate and rhythm. No murmurs, gallops, rubs. ABDOMEN: Soft, nontender, nondistended. Positive bowel sounds. GENITOURINARY: She has costovertebral angle tenderness bilaterally. PELVIC: Examination is deferred at this time. EXTREMITIES: Nontender. No clubbing, cyanosis, edema. PSYCHIATRIC: Normal affect. NEUROLOGICAL: Cranial nerves II-XII intact 5/5 all four extremities LABORATORY FINDINGS: Labs show a white count of 12.9 down from 15.3. Hemoglobin 10.4, hematocrit 32.6, platelets 145, sodium 139, potassium 3.7, chloride 108, bicarb 24, BUN 4, creatinine 0.54, glucose 129. Her urine showed trace blood, negative nitrate, negative leukocyte esterase. IMAGING STUDIES CT of pelvis with IV contrast was reviewed, images recurrence radiologist's report the patient has large matted left kidney consistent with multiple low attenuation areas consistent with a pyelonephritis and possible bacteria nephronia. ASSESSMENT AND PLAN: The patient is a 31-year-old female with a history urinary tract infections who presented with fevers, chills, a left flank pain is found to have left pyelonephritis, possible Bacterial nephonia. PLAN Recommend continuing vancomycin and Zosyn until her cultures are final, as well as she is afebrile for over 24 hours then can switch to oral medication. We will need to monitor for the next 48 hours for possible abscess formation especially if she does not clinically improve. We will add Toradol for pain, no acute urological intervention needed at this time as she does not have an obstruction of the left kidney. Thank you for this consultation, we will follow up with you. MD Mendez Napier /10:46 AM /11:37 AM
[2017-01-24] MEDS: KETOROLAC TROMETHAMINE 30 MG/ML (IVP) VIAL IV PUSH SCH ×3 (13:35→23:18)
--- NOTE | 2017-01-24 14:49 | PD.ID.CON ---
History of Present Illness Service ID Consult Requested By Dr. Samuels Reason for Consult Evaluation and Mment of Sepsis and Acute Pyelonephritis. Primary Care Physician No Primary Care Physician Diagnoses: History of Present Illness Ms. Foy is a 31 y/o CM with PMHx of recurrent UTIs usually post coital, HSV2 and HPV who presents to the ED with h/o fevers, chills and night sweats prior to admission. She also noticed spotting from her vaginal area. A test sent outpatient prior to admission was negative. She also noticed hematuria. She reports her PCP was booked but they called in some lab work and gave her Nitrofurantoin. Macrobid gave her diarrhea and N/V so this was changed to Keflex. The patient presented to the emergency department earlier today and she was prescribed cephalexin and discharged home after she was not febrile, however she went home and starting feeling worse and so decided to come back to the hospital. She denies any cough, chest pain, short of breath, feels nauseous but this has improved, denies abdominal pain. ID consulted for evaluation and Mment of Sepsis and, acute pyelonephritis. Review of Systems Constitutional: COMPLAINS OF: Diaphoretic episodes, Fever, Chills, DENIES: Fatigue, Weight gain, Weight loss, Dizziness, Change in appetite, Night Sweats Endocrine: COMPLAINS OF: Abnorml menstrual pattern, DENIES: Heat/cold intolerance, Polydipsia, Polyuria, Polyphagia Eyes: DENIES: Blurred vision, Diplopia, Eye inflammation, Eye pain, Vision loss , Photosensitivity, Double Vision Ears, nose, mouth, throat: DENIES: Tinnitus, Hearing loss, Vertigo, Nasal discharge, Oral lesions, Throat pain, Hoarseness, Ear Pain, Running Nose, Epistaxis, Sinus Pain, Toothache, Odynophagia Respiratory: DENIES: Apneas, Cough, Snoring, Wheezing, Hemoptysis, Sputum production, Shortness of breath Cardiovascular: DENIES: Chest pain, Palpitations, Syncope, Dyspnea on Exertion , PND, Lower Extremity Edema, Orthopnea, Claudication Gastrointestinal: DENIES: Abdominal pain, Black stools, Bloody stools, Constipation, Diarrhea, Nausea, Vomiting, Difficulty Swallowing, Anorexia Genitourinary: COMPLAINS OF: Hematuria, DENIES: Abnormal vaginal bleeding, Dysmenorrhea, Dyspareunia, Sexual dysfunction, Urinary frequency, Urinary incontinence, Urgency, Dysuria, Nocturia, Vaginal discharge Musculoskeletal: DENIES: Joint pain, Muscle aches, Stiffness, Joint Swelling, Back pain, Neck pain Integumentary: DENIES: Abnormal pigmentation, Pruritus, Rash, Nail changes, Breast masses, Breast skin changes, Nipple discharge Hematologic/lymphatic: DENIES: Bruising, Lymphadenopathy Immunologic/allergic: DENIES: Eczema, Urticaria Neurologic: DENIES: Abnormal gait, Headache, Localized weakness, Paresthesias, Seizures, Speech Problems, Tremor, Poor Balance Psychiatric: DENIES: Anxiety, Confusion, Mood changes, Depression, Hallucinations, Agitation, Suicidal Ideation, Homicidal Ideation, Delusions Except as stated in HPI: all other systems reviewed are Neg Past Family Social History Allergies: Coded Allergies: Nitrofurantoin (Verified Adverse Reaction, Unknown, vomiting, 01/23/17) diarrhea Past Medical History History of multiple UTIs in the past Herpes genitalis HPV Depression Pre-menstrual syndrome Past Surgical History None per patient. Reported Medications Reported Meds & Active Scripts Active Zofran (Ondansetron HCl) 4 Mg Tab 4 Mg PO Q6HR PRN Cephalexin 500 Mg Cap 500 Mg PO Q8H Reported Fluoxetine (Fluoxetine HCl) 10 Mg Tab 10 Mg PO DAILY Macrobid (Nitrofurantoin Monoh/Nitrofur Macro) 100 Mg Cap 100 Mg PO BID Active Ordered Medications Current Medications Medications (Trade) Dose Ordered Sig/Arden Route Start Time Stop Time Status Last Admin (NS 1000 ml Inj) 1,000 ml @ 100 mls/hr Q10H IV 01/23/17 21:03 01/24/17 10:00 (NS Flush) 2 ml UNSCH PRN IV FLUSH 01/23/17 21:15 (NS Flush) 2 ml BID IV FLUSH 01/24/17 09:00 (Tylenol) 650 mg Q4H PRN PO 01/23/17 21:15 01/24/17 11:22 (Zofran Inj) 4 mg Q6H PRN IVP 01/23/17 21:15 01/24/17 17:58 (Lovenox Inj) 40 mg HS SQ 01/23/17 21:45 01/23/17 23:30 (Selina-Colace) 1 tab BID PO 01/24/17 09:00 (Milk Of Magnesia Liq) 30 ml Q12H PRN PO 01/23/17 21:15 (Senokot) 17.2 mg Q12H PRN PO 01/23/17 21:15 (Dulcolax Supp) 10 mg DAILY PRN RECTAL 01/23/17 21:15 Lactulose 30 ml 30 ml DAILY PRN PO 01/23/17 21:15 Pharmacy Profile Note 0 ml @ 0 mls/hr UNSCH OTHER 01/23/17 21:15 (Zosyn 4.5 Gm Premix) 100 ml @ 200 mls/hr Q8H IV 01/24/17 04:00 01/24/17 13:37 Famotidine 20 mg 20 mg BID PO 01/24/17 09:00 01/24/17 08:54 (Vancomycin Inj/ NS 250 ml Inj) 250 ml @ 250 mls/hr Q12H IV 01/24/17 11:00 01/24/17 11:21 Miscellaneous Information SPECIFIC LAB TO BE RAJIV... ONCE ONCE .XX 01/25/17 10:45 01/25/17 10:46 (Toradol Inj) 15 mg Q6HR IV PUSH 01/24/17 12:00 01/24/17 17:08 (Lomotil Tab) 1 tab Q6HR PO 01/24/17 14:00 01/24/17 16:33 Family History reviewed and NC to current ID problems Social History reviewed. Physical Exam Vital Signs Vital Signs Date Time Temp Pulse Resp B/P Pulse Ox O2 Delivery O2 Flow Rate FiO2 01/24/17 12:01 100.7 104 18 128/82 100 01/24/17 08:01 98.9 94 18 101/65 99 01/24/17 04:47 99.5 110 16 111/70 100 01/24/17 04:05 85 01/23/17 23:08 98.2 96 112/62 98 Room Air 01/23/17 19:05 97 Room Air 01/23/17 19:05 Room Air 01/23/17 18:27 102.8 01/23/17 16:40 100.6 118 21 145/79 100 Physical Exam GENERAL: This is a well-nourished, well-developed patient, in no apparent distress. SKIN: No rashes, ecchymoses or lesions. Cool and dry. HEAD: Atraumatic. Normocephalic. No temporal or scalp tenderness. EYES: Pupils equal round and reactive. Extraocular motions intact. No scleral icterus. No injection or drainage. ENT: Nose without bleeding, purulent drainage or septal hematoma. Throat without erythema, tonsillar hypertrophy or exudate. Uvula midline. Airway patent. NECK: Trachea midline. Supple, nontender, no meningeal signs. CARDIOVASCULAR: Regular rate and rhythm without murmurs, gallops, or rubs. RESPIRATORY: Clear to auscultation. Breath sounds equal bilaterally. No wheezes , rales, or rhonchi. GASTROINTESTINAL: Abdomen soft, non-tender, nondistended. No CV tenderness. MUSCULOSKELETAL: Extremities without clubbing, cyanosis, or edema. No joint tenderness, effusion, or edema noted. No calf tenderness. Negative Homans sign bilaterally. NEUROLOGICAL: Awake and alert. Grossly non focal. Psych: cooperative IV line sites with no e.o infection. Laboratory Laboratory Tests Test 01/23/17 01/23/17 01/24/17 01/24/17 18:55 19:38 05:27 09:17 White Blood Count 15.3 12.9 Red Blood Count 3.75 3.62 Hemoglobin 11.0 10.4 Hematocrit 34.0 32.6 Mean Corpuscular Volume 90.5 89.9 Mean Corpuscular Hemoglobin 29.3 28.8 Mean Corpuscular Hemoglobin 32.4 32.0 Concent Red Cell Distribution Width 12.8 13.1 Platelet Count 156 145 Mean Platelet Volume 8.0 8.5 Neutrophils (%) (Auto) 85.4 81.7 Lymphocytes (%) (Auto) 4.0 8.4 Monocytes (%) (Auto) 10.6 9.7 Eosinophils (%) (Auto) 0.0 0.0 Basophils (%) (Auto) 0.0 0.2 Neutrophils # (Auto) 13.1 10.5 Lymphocytes # (Auto) 0.6 1.1 Monocytes # (Auto) 1.6 1.3 Eosinophils # (Auto) 0.0 0.0 Basophils # (Auto) 0.0 0.0 CBC Comment DIFF FINAL DIFF FINAL Differential Comment Sodium Level 134 139 Potassium Level 3.2 3.7 Chloride Level 103 108 Carbon Dioxide Level 22.0 24.0 Anion Gap 9 7 Blood Urea Nitrogen 6 4 Creatinine 0.65 0.54 Estimat Glomerular Filtration 106 131 Rate Random Glucose 168 129 Lactic Acid Level 1.2 Calcium Level 8.3 7.4 Total Bilirubin 0.4 0.4 Aspartate Amino Transf 8 7 (AST/SGOT) Alanine Aminotransferase 11 10 (ALT/SGPT) Alkaline Phosphatase 47 49 Total Protein 6.7 6.3 Albumin 3.5 2.9 Lipase 61 Urine Color YELLOW Urine Turbidity CLEAR Urine pH 7.5 Urine Specific [place] 1.045 Urine Protein 30 Urine Glucose (UA) 70 Urine Ketones 150 Urine Occult Blood TRACE Urine Nitrite NEG Urine Bilirubin NEG Urine Urobilinogen LESS THAN 2.0 Urine Leukocyte Esterase NEG Urine RBC 20 Urine WBC 5 Urine Squamous Epithelial 5 Cells Microscopic Urinalysis Comment CATH-CULT NOT IND Protein Corrected Calcium 7.8 Stool C. difficile Toxin (PCR) NEGATIVE Stl C. difficile Toxin PRESUMPTIVE Epiderm 027 NEGATIVE Date/Time Procedure Status Source Growth 01/23/17 18:55 Aerobic Blood Culture - Preliminary Resulted Blood Peripheral NO GROWTH IN 1 DAY 01/23/17 18:55 Anaerobic Blood Culture - Preliminary Resulted Blood Peripheral NO GROWTH IN 1 DAY Result Diagram: 01/24/17 0527 01/24/1727 Imaging Last Impressions Chest X-Ray 01/23/171828 Signed Impressions: Service Date/Time: Monday, January 23, 2017 18:30 - CONCLUSION: No acute disease. Ilya Cho MD Abdomen/Pelvis CT 01/23/171828 Signed Impressions: Service Date/Time: Monday, January 23, 2017 19:00 - CONCLUSION: 1. Abnormal left kidney with multiple ill-defined low attenuation areas most characteristic of infection and possible bacterial nephronia. There is no perinephric collection or obstruction. 2. Questionable minute renal oculi which may be artifactual. 3. Small left ovarian cyst. Ilya Cho MD Assessment and Plan Assessment and Plan Sepsis present on admission Pyelonephritis/Bacterial Nephrosis Partially treated with antibiotics (keflex and nitrofurantoin) prior to admission. Previous history of recurrent UTIs. H/o HSV2 and HPV Diarrhea present on admission: Likely antibiotic induced vs viral vs other infections. Cdiff negative. Stool OP and parasites pending. Recs: DC Zosyn IV Start Ceftriaxone IV DC Vanco IV Follow cultures Follow clinically. Hopefully home soon on oral if continues to do well. Explained to patient if she does not improve overnight or new worsening may need repeat imaging. Will try to obtain urine cultures at outside lab prior to start of antibiotics to help guide therapy. Follow cultures Check GC and Chalmydia as urine culture here is negative ? partially treated vs STD. Pt reports her HIV and hepatitis panel were negative 2 yrs back and does not want to be retested as only 1 partner for both her and spouse. Julia Hobbs MD Jan 24, 2017 14:49
--- NOTE | 2017-01-24 15:55 | HHI.PR ---
Subjective Remarks Patient just came out of the bathroom Complained of diarrhea 4 liquidy bowel movements Fever of 100.7 this morning No fever, mother was at the bedside Patient told me she was seen by [facility] today Objective Vitals Vital Signs Date Time Temp Pulse Resp B/P Pulse Ox O2 Delivery O2 Flow Rate FiO2 01/24/17 12:01 100.7 104 18 128/82 100 01/24/17 08:01 98.9 94 18 101/65 99 01/24/17 04:47 99.5 110 16 111/70 100 01/24/17 04:05 85 01/23/17 23:08 98.2 96 112/62 98 Room Air 01/23/17 19:05 97 Room Air 01/23/17 19:05 Room Air 01/23/17 18:27 102.8 01/23/17 16:40 100.6 118 21 145/79 100 I/O 01/23/17 01/23/17 01/23/17 01/24/17 01/24/17 01/24/17 07:00 15:00 23:00 07:00 15:00 23:00 Intake Total 250 ml Balance 250 ml Intake Oral 250 ml # Voids 2 # Bowel Movements 4 Result Diagram: 01/24/1727 01/24/17526 Objective Remarks GENERAL: This is a well-nourished, well-developed patient, in no apparent distress. SKIN: No rashes, warm and dry HEAD: Atraumatic. Normocephalic. EYES: Pupils equal round and reactive. Extraocular motions intact. No scleral icterus. ENT: Nose without bleeding, or drainage, Airway patent. NECK: Trachea midline. Supple CARDIOVASCULAR: Regular rate and rhythm without murmurs, gallops, or rubs. RESPIRATORY: Fair air entry bilaterally. No wheezes, rales, or rhonchi. GASTROINTESTINAL: Abdomen soft, non-tender, nondistended. Positive bowel sounds MUSCULOSKELETAL: Extremities without clubbing, cyanosis, or edema. Pedal pulses appreciated NEUROLOGICAL: Awake and alert. Moves all extremity. Normal speech.no focal neurological deficit A/P Problem List: (1) Sepsis ICD Code: A41.9 Status: Acute (2) Pyelonephritis ICD Code: N12 Status: Acute (3) Nausea and vomiting ICD Code: R11.2 Status: Acute (4) Fever ICD Code: R50.9 Status: Acute (5) Hypokalemia ICD Code: E87.6 Status: Acute (6) Hyponatremia ICD Code: E87.1 Status: Acute Assessment and Plan Sepsis mostly due to urine infection/pyelonephritis Pyelonephritis Nausea vomiting due to above Dehydration with Hypokalemia and hyponatremia Plan: CT abdomen and pelvis as described above shows abnormal left kidney with multiple ill-defined low-attenuation areas most characteristic of infection and possible bacterial nephronia. Continue IV antibiotics, IV vancomycin and IV Zosyn Continue supportive therapy with IV fluids, Tylenol and Zofran as needed. Follow-up blood cultures obtained in the emergency department. Urology and ID consulted Antiemetic Replete electrolytes when necessary GI prophylaxis:PPI DVT prophylaxis: SCDs, Lovenox subcutaneous. Problem Qualifiers (1) Sepsis: Qualified Code: A41.9 - Sepsis, due to unspecified organism (2) Nausea and vomiting: Qualified Code: R11.2 - Non-intractable vomiting with nausea, unspecified vomiting type (3) Fever: Qualified Code: R50.9 - Fever, unspecified fever cause Rubi Samuels MD Jan 24, 2017 15:55
[2017-01-24] MEDS: DIPHENOXYLATE/ATROPINE 2.5 MG/0.025 MG TAB PO SCH ×2 (16:33→23:19)
[2017-01-24] MEDS: ENOXAPARIN SODIUM 40 MG/0.4 ML SYRINGE SQ SCH (20:34)
[2017-01-24] MEDS: cefTRIAXone INJ 2,000 MG in SODIUM CHLORIDE 0.9% INJ 100 ML IV SCH (20:34)
[2017-01-25] VITALS (8 sets, daily range): BP systolic 107–132; BP diastolic 64–82; PULSE 64–92; RESP 18–20; TEMP 96.4–100.3; O2SAT 98–100
[2017-01-25] MEDS: ONDANSETRON HCL 4 MG/2 ML VIAL IVP PRN ×2 (06:19→13:11)
[2017-01-25] MEDS: DIPHENOXYLATE/ATROPINE 2.5 MG/0.025 MG TAB PO SCH ×5 (06:19→22:58)
[2017-01-25] MEDS: KETOROLAC TROMETHAMINE 30 MG/ML (IVP) VIAL IV PUSH SCH ×4 (06:19→22:59)
[2017-01-25] MEDS: DOCUSATE SODIUM 50 MG/SENNA 8.6 MG TAB PO SCH ×2 (08:12→20:38)
[2017-01-25] MEDS: SODIUM CHLORIDE 0.9% FLUSH 10 ML FLUSH IV FLUSH SCH ×2 (08:12→20:39)
[2017-01-25] MEDS: FAMOTIDINE 20 MG TAB PO SCH ×2 (08:14→20:38)
--- NOTE | 2017-01-25 08:33 | HHI.PR ---
Subjective Patient symptoms today had good night last night. Fever of 101 at 8 pm however. Mild left sided abdominal pain this morning. Objective Vital Signs Vital Signs Date Time Temp Pulse Resp B/P Pulse Ox O2 Delivery O2 Flow Rate FiO2 01/25/17 08:01 98.2 92 18 107/67 98 01/25/17 04:08 96.8 70 18 112/67 100 01/25/17 00:08 99.3 86 18 112/64 98 01/24/17 23:19 80 01/24/17 22:58 99.3 01/24/17 20:32 101.9 01/24/17 20:00 99.5 104 18 118/76 100 01/24/17 16:15 98.5 91 19 117/78 98 01/24/17 12:01 100.7 104 18 128/82 100 Intake & Output 01/25/17 01/25/17 07:00 19:00 Intake Total 2033 ml Balance 2033 ml IV Total 2033 ml # Voids 5 # Bowel Movements 2 Result Diagram: 01/24/1752601/24/17526 Objective Remarks NAD. A/O x 3 abd soft Medications and IVs Current Medications Medications (Trade) Dose Ordered Sig/Arden Route Start Time Stop Time Status Last Admin (NS 1000 ml Inj) 1,000 ml @ 100 mls/hr Q10H IV 01/23/17 21:03 01/24/17 23:23 (NS Flush) 2 ml UNSCH PRN IV FLUSH 01/23/17 21:15 (NS Flush) 2 ml BID IV FLUSH 01/24/17 09:00 (Tylenol) 650 mg Q4H PRN PO 01/23/17 21:15 01/24/17 20:33 (Zofran Inj) 4 mg Q6H PRN IVP 01/23/17 21:15 01/25/17 06:19 (Lovenox Inj) 40 mg HS SQ 01/23/17 21:45 01/24/17 20:34 (Selina-Colace) 1 tab BID PO 01/24/17 09:00 (Milk Of Magnesia Liq) 30 ml Q12H PRN PO 01/23/17 21:15 (Senokot) 17.2 mg Q12H PRN PO 01/23/17 21:15 (Dulcolax Supp) 10 mg DAILY PRN RECTAL 01/23/17 21:15 (Lactulose Liq) 30 ml DAILY PRN PO 01/23/17 21:15 (Pepcid) 20 mg BID PO 01/24/17 09:00 01/25/17 08:14 (Toradol Inj) 15 mg Q6HR IV PUSH 01/24/17 12:00 01/25/17 06:19 Diphenoxylate HCl/ Atropine 1 tab 1 tab Q6HR PO 01/24/17 14:00 01/25/17 06:19 (Rocephin Inj/NS Inj) 100 ml @ 200 mls/hr Q24H IV 01/24/17 20:00 01/24/17 20:34 Assessment and Plan Problem List: (1) Pyelonephritis ICD Code: N12 Status: Acute Assessment and Plan -Continue IV antibiotics until afebrile x 24 hours. Then, can switch to PO once cultures final. -pain control -Since she is improving, doubt she will need to be re-imaged. Maged Diop MD Jan 25, 2017 08:33
[2017-01-25 09:48] LABS: AUTOMATED NEUTROPHIL # 5.9 TH/MM3 (1.8-7.7); BASOPHIL % 0.4 % (0.0-2.0); EOSINOPHIL % 0.5 % (0.0-4.0); HEMATOCRIT 29.3 % (35.0-46.0); HEMO FLAGS DIFF FINAL; LYMPH % 18.8 % (9.0-44.0); LYMPHOCYTE # 1.6 TH/MM3 (1.0-4.8); MEAN CELL VOLUME 90.2 FL (80.0-100.0); MEAN CORPUSCULAR HEMOGLOBIN 29.4 PG (27.0-34.0); MEAN CORPUSCULAR HGB CONC 32.6 % (32.0-36.0); MONO % 11.3 % (0.0-8.0); PLATELET COUNT 151 TH/MM3 (150-450); RED BLOOD COUNT 3.25 MIL/MM3 (4.00-5.30); RED CELL DISTRIBUTION WIDTH 13.1 % (11.6-17.2); WHITE BLOOD COUNT 8.5 TH/MM3 (4.0-11.0)
[2017-01-25 10:12] LABS: BICARBONATE 21.6 MEQ/L (21.0-32.0); POTASSIUM 3.3 MEQ/L (3.5-5.1)
[2017-01-25] MEDS ORDERED: PHARMACY ORDERED LAB ONE (10:45)
[2017-01-25] MEDS ORDERED: POTASSIUM CHLORIDE 20 MEQ CONTROLLED RELEASE TAB PO ONE (12:30)
[2017-01-25] MEDS: SODIUM CHLOR 0.9% 1000 ML INJ 1,000 ML IV SCH ×2 (13:03→23:03)
--- NOTE | 2017-01-25 14:22 | HHI.PR ---
Addendum to Inpatient Note Addendum Reason: Additional Documentation Additional Information Possible Zosyn Vanco induced fevers Defervescing fevers off them Temps better on Ceftriaxone If continues to do well likely DC home on oral antibiotics in danish. Kita Junior. Will follow in am. Julia Hobbs MD Jan 25, 2017 14:22
--- NOTE | 2017-01-25 17:18 | HHI.PR ---
Subjective Remarks Patient started feeling better, diarrhea is better only 1 bowel movement that's soft WBC back to normal, she did have a temp 101.9 at 8 PM last night D/W ID plan to continue monitoring if improved may be discharged if not we'll need to repeat a CT Objective Vitals Vital Signs Date Time Temp Pulse Resp B/P Pulse Ox O2 Delivery O2 Flow Rate FiO2 01/25/17 16:11 97.8 71 18 132/82 100 01/25/17 12:01 96.4 65 18 121/75 100 01/25/17 08:01 98.2 92 18 107/67 98 01/25/17 04:08 96.8 70 18 112/67 100 01/25/17 00:08 99.3 86 18 112/64 98 01/24/17 23:19 80 01/24/17 22:58 99.3 01/24/17 20:32 101.9 01/24/17 20:00 99.5 104 18 118/76 100 I/O 01/24/17 01/24/17 01/24/17 01/25/17 01/25/17 01/25/17 07:00 15:00 23:00 07:00 15:00 23:00 Intake Total 250 ml 2033 ml Balance 250 ml 2033 ml Intake Oral 250 ml IV Total 2033 ml # Voids 2 2 3 1 2 # Bowel Movements 4 2 0 Result Diagram: 01/25/17 0757 01/25/17 0757 Objective Remarks GENERAL: This is a well-nourished, well-developed patient, in no apparent distress. SKIN: No rashes, warm and dry HEAD: Atraumatic. Normocephalic. EYES: Pupils equal round and reactive. Extraocular motions intact. No scleral icterus. ENT: Nose without bleeding, or drainage, Airway patent. NECK: Trachea midline. Supple CARDIOVASCULAR: Regular rate and rhythm without murmurs, gallops, or rubs. RESPIRATORY: Fair air entry bilaterally. No wheezes, rales, or rhonchi. GASTROINTESTINAL: Abdomen soft, non-tender, nondistended. Positive bowel sounds MUSCULOSKELETAL: Extremities without clubbing, cyanosis, or edema. Pedal pulses appreciated NEUROLOGICAL: Awake and alert. Moves all extremity. Normal speech.no focal neurological deficit A/P Problem List: (1) Sepsis ICD Code: A41.9 Status: Acute (2) Pyelonephritis ICD Code: N12 Status: Acute (3) Nausea and vomiting ICD Code: R11.2 Status: Acute (4) Fever ICD Code: R50.9 Status: Acute (5) Hypokalemia ICD Code: E87.6 Status: Acute (6) Hyponatremia ICD Code: E87.1 Status: Acute Assessment and Plan Sepsis mostly due to urine infection/pyelonephritis Pyelonephritis Nausea vomiting due to above Dehydration with Hypokalemia and hyponatremia Plan: Discussed with ID, will continue on Rocephin and monitor fever, reviewed urology note, if no improvement will need a CT repeated C. difficile is negative, diarrhea improved GC and Chlamydia antigen pending CT abdomen and pelvis as described above shows abnormal left kidney with multiple ill-defined low-attenuation areas most characteristic of infection and possible bacterial nephronia. Continue IV antibiotics, status post IV vancomycin and IV Zosyn Continue supportive therapy with IV fluids, Tylenol and Zofran as needed. Follow-up blood cultures obtained in the emergency department. Urology and ID following Antiemetic Replete electrolytes when necessary GI prophylaxis:PPI DVT prophylaxis: SCDs, Lovenox subcutaneous. Problem Qualifiers (1) Sepsis: Qualified Code: A41.9 - Sepsis, due to unspecified organism (2) Nausea and vomiting: Qualified Code: R11.2 - Non-intractable vomiting with nausea, unspecified vomiting type (3) Fever: Qualified Code: R50.9 - Fever, unspecified fever cause Rubi Samuels MD Jan 25, 2017 17:18
[2017-01-25] MEDS: ACETAMINOPHEN 325 MG TAB PO PRN (18:04)
[2017-01-25] MEDS: ENOXAPARIN SODIUM 40 MG/0.4 ML SYRINGE SQ SCH (20:38)
[2017-01-25] MEDS: cefTRIAXone INJ 2,000 MG in SODIUM CHLORIDE 0.9% INJ 100 ML IV SCH (20:39)
[2017-01-25 23:37] LABS: BLOOD, URINE NEG (NEG); GLUCOSE,URINE NEG (NEG); KETONE, URINE NEG (NEG); NITRITE,URINE NEG (NEG); SQUAMOUS EPITHELIAL CELL URINE <1 /hpf (0-5); URINE COLOR LIGHT-YELLOW (YELLW/STRAW)
[2017-01-25 23:41] LABS: COMMENT (UR) CULT NOT INDICATED; CULTURE IF INDICATED CULT NOT INDICATED
[2017-01-26] VITALS (9 sets, daily range): BP systolic 111–143; BP diastolic 66–84; PULSE 52–84; RESP 16–20; TEMP 96.7–100.6; O2SAT 98–100
[2017-01-26] MEDS: KETOROLAC TROMETHAMINE 30 MG/ML (IVP) VIAL IV PUSH SCH ×3 (05:22→17:40)
[2017-01-26] MEDS: ACETAMINOPHEN 325 MG TAB PO PRN (05:22)
[2017-01-26] MEDS: DIPHENOXYLATE/ATROPINE 2.5 MG/0.025 MG TAB PO SCH ×3 (05:24→17:40)
--- NOTE | 2017-01-26 07:47 | HHI.PR ---
Addendum to Inpatient Note Additional Information d/w this am: Due to persistent low grade fevers will consider CT A/P if on follow up clinically today still not doing well. Not ready for DC yet. Julia Hobbs MD Jan 26, 2017 07:47
[2017-01-26 08:42] LABS: AUTOMATED NEUTROPHIL # 4.5 TH/MM3 (1.8-7.7); BASOPHIL % 0.4 % (0.0-2.0); EOSINOPHIL # 0.1 TH/MM3 (0-0.4); EOSINOPHIL % 1.8 % (0.0-4.0); HEMATOCRIT 31.7 % (35.0-46.0); HEMO FLAGS DIFF FINAL; LYMPH % 23.1 % (9.0-44.0); LYMPHOCYTE # 1.6 TH/MM3 (1.0-4.8); MEAN CELL VOLUME 90.1 FL (80.0-100.0); MEAN CORPUSCULAR HEMOGLOBIN 29.2 PG (27.0-34.0); MEAN CORPUSCULAR HGB CONC 32.4 % (32.0-36.0); MONO % 9.4 % (0.0-8.0); NEUT % 65.3 % (16.0-70.0); PLATELET COUNT 180 TH/MM3 (150-450); RED BLOOD COUNT 3.51 MIL/MM3 (4.00-5.30); RED CELL DISTRIBUTION WIDTH 13.2 % (11.6-17.2); WHITE BLOOD COUNT 6.9 TH/MM3 (4.0-11.0)
[2017-01-26] MEDS: DOCUSATE SODIUM 50 MG/SENNA 8.6 MG TAB PO SCH ×2 (09:00→20:09)
[2017-01-26] MEDS: SODIUM CHLORIDE 0.9% FLUSH 10 ML FLUSH IV FLUSH SCH ×2 (09:45→20:08)
[2017-01-26] MEDS: FAMOTIDINE 20 MG TAB PO SCH ×2 (09:45→20:06)
[2017-01-26] MEDS: SODIUM CHLOR 0.9% 1000 ML INJ 1,000 ML IV SCH ×2 (09:45→19:03)
[2017-01-26 09:46] LABS: ANION GAP 9 MEQ/L (5-15); AST (GOT) 10 U/L (15-37); BLOOD UREA NITROGEN 4 MG/DL (7-18); CHLORIDE 104 MEQ/L (98-107); GLOMERULAR FILTRATION RATE 175 ML/MIN (>89); POTASSIUM 3.4 MEQ/L (3.5-5.1); SODIUM (NA) 138 MEQ/L (136-145)
[2017-01-26 09:48] LABS: ALT (GPT) 12 U/L (10-53)
[2017-01-26 09:50] LABS: ALKALINE PHOSPHATASE 46 U/L (45-117); TOTAL BILIRUBIN ADULT 0.3 MG/DL (0.2-1.0)
--- NOTE | 2017-01-26 16:03 | HHI.PR ---
Subjective Remarks Doing better today, no more diarrhea just 1 bowel movement that is firmer, recent fever 100.6 Discussed with ID , plan to monitor today on Rocephin antibiotic which also recommended by urology, if worse and will do CT if not patient can be discharged tomorrow Objective Vitals Vital Signs Date Time Temp Pulse Resp B/P Pulse Ox O2 Delivery O2 Flow Rate FiO2 01/26/17 12:15 17 01/26/17 12:00 97.3 52 16 143/80 100 01/26/17 08:00 96.7 72 16 132/84 98 01/26/17 07:00 74 01/26/17 04:00 100.6 65 20 111/66 100 01/26/17 00:24 65 01/26/17 00:00 97.9 62 20 111/66 100 01/25/17 20:35 99.6 78 20 110/70 98 01/25/17 18:06 100.3 01/25/17 18:00 64 01/25/17 16:11 97.8 71 18 132/82 100 I/O 01/25/17 01/25/17 01/25/17 01/26/17 01/26/17 01/26/17 07:00 15:00 23:00 07:00 15:00 23:00 Intake Total 2033 ml 1503 ml 2272 ml 813 ml Balance 2033 ml 1503 ml 2272 ml 813 ml Intake Oral 400 ml IV Total 2033 ml 1103 ml 2272 ml 813 ml # Voids 3 1 2 3 # Bowel Movements 0 0 Result Diagram: 01/26/17 0730 01/26/17 0730 Objective Remarks GENERAL: This is a well-nourished, well-developed patient, in no apparent distress. SKIN: No rashes, warm and dry HEAD: Atraumatic. Normocephalic. EYES: Pupils equal round and reactive. Extraocular motions intact. No scleral icterus. ENT: Nose without bleeding, or drainage, Airway patent. NECK: Trachea midline. Supple CARDIOVASCULAR: Regular rate and rhythm without murmurs, gallops, or rubs. RESPIRATORY: Fair air entry bilaterally. No wheezes, rales, or rhonchi. GASTROINTESTINAL: Abdomen soft, non-tender, nondistended. Positive bowel sounds MUSCULOSKELETAL: Extremities without clubbing, cyanosis, or edema. Pedal pulses appreciated NEUROLOGICAL: Awake and alert. Moves all extremity. Normal speech.no focal neurological deficit A/P Problem List: (1) Sepsis ICD Code: A41.9 Status: Acute (2) Pyelonephritis ICD Code: N12 Status: Acute (3) Nausea and vomiting ICD Code: R11.2 Status: Acute (4) Fever ICD Code: R50.9 Status: Acute (5) Hypokalemia ICD Code: E87.6 Status: Acute (6) Hyponatremia ICD Code: E87.1 Status: Acute Assessment and Plan Sepsis mostly due to urine infection/pyelonephritis Pyelonephritis Nausea vomiting due to above Dehydration with Hypokalemia and hyponatremia Plan: Tinea current care and monitoring Discussed with ID, will continue on Rocephin and monitor fever, reviewed urology note, if no improvement will need a CT repeated C. difficile is negative, diarrhea improved GC and Chlamydia antigen pending CT abdomen and pelvis as described above shows abnormal left kidney with multiple ill-defined low-attenuation areas most characteristic of infection and possible bacterial nephronia. Continue IV antibiotics, status post IV vancomycin and IV Zosyn Continue supportive therapy with IV fluids, Tylenol and Zofran as needed. Follow-up blood cultures obtained in the emergency department. Urology and ID following Antiemetic Replete electrolytes when necessary GI prophylaxis:PPI DVT prophylaxis: SCDs, Lovenox subcutaneous. Problem Qualifiers (1) Sepsis: Qualified Code: A41.9 - Sepsis, due to unspecified organism (2) Nausea and vomiting: Qualified Code: R11.2 - Non-intractable vomiting with nausea, unspecified vomiting type (3) Fever: Qualified Code: R50.9 - Fever, unspecified fever cause Rubi Samuels MD Jan 26, 2017 16:03
--- NOTE | 2017-01-26 17:16 | HHI.IDPN ---
Subjective Subjective Remarks Ms. Foy is a 31 y/o CM with PMHx of recurrent UTIs usually post coital, HSV2 and HPV who presents to the ED with h/o fevers, chills and night sweats prior to admission. She also noticed spotting from her vaginal area. A test sent outpatient prior to admission was negative. She also noticed hematuria. She reports her PCP was booked but they called in some lab work and gave her Nitrofurantoin. Macrobid gave her diarrhea and N/V so this was changed to Keflex. The patient presented to the emergency department earlier today and she was prescribed cephalexin and discharged home after she was not febrile, however she went home and starting feeling worse and so decided to come back to the hospital. She denies any cough, chest pain, short of breath, feels nauseous but this has improved, denies abdominal pain. ID consulted for evaluation and Mment of Sepsis and, acute pyelonephritis. Overnight events reviewed. Persistent low-grade fevers 100.2 and 100.52 times in the last 24 hours. No rash No diarrhea Oral feels slightly better than prior days. Antibiotics Ceftriaxone IV Lines Line sites with no evidence of infection. Past Medical History Reviewed. Allergies: Coded Allergies: Nitrofurantoin (Verified Adverse Reaction, Unknown, vomiting, 01/23/17) diarrhea Objective . Vital Signs Date Time Temp Pulse Resp B/P Pulse Ox O2 Delivery O2 Flow Rate FiO2 01/26/17 16:00 97.7 84 16 118/74 99 01/26/17 12:15 17 01/26/17 12:00 97.3 52 16 143/80 100 01/26/17 08:00 96.7 72 16 132/84 98 01/26/17 07:00 74 01/26/17 04:00 100.6 65 20 111/66 100 01/26/17 00:24 65 01/26/17 00:00 97.9 62 20 111/66 100 01/25/17 20:35 99.6 78 20 110/70 98 01/25/17 18:06 100.3 01/25/17 18:00 64 01/25/17 01/25/17 01/26/17 15:00 23:00 07:00 Intake Total 1503 ml 2272 ml Balance 1503 ml 2272 ml Intake Oral 400 ml IV Total 1103 ml 2272 ml # Voids 1 2 3 # Bowel Movements 0 . Laboratory Tests Test 01/25/17 01/26/17 07:57 07:30 White Blood Count 8.5 TH/MM3 6.9 TH/MM3 Red Blood Count 3.25 MIL/MM3 3.51 MIL/MM3 Hemoglobin 9.6 GM/DL 10.3 GM/DL Hematocrit 29.3 % 31.7 % Mean Corpuscular Volume 90.2 FL 90.1 FL Mean Corpuscular Hemoglobin 29.4 PG 29.2 PG Mean Corpuscular Hemoglobin 32.6 % 32.4 % Concent Red Cell Distribution Width 13.1 % 13.2 % Platelet Count 151 TH/MM3 180 TH/MM3 Mean Platelet Volume 8.5 FL 8.1 FL Neutrophils (%) (Auto) 69.0 % 65.3 % Lymphocytes (%) (Auto) 18.8 % 23.1 % Monocytes (%) (Auto) 11.3 % 9.4 % Eosinophils (%) (Auto) 0.5 % 1.8 % Basophils (%) (Auto) 0.4 % 0.4 % Neutrophils # (Auto) 5.9 TH/MM3 4.5 TH/MM3 Lymphocytes # (Auto) 1.6 TH/MM3 1.6 TH/MM3 Monocytes # (Auto) 1.0 TH/MM3 0.6 TH/MM3 Eosinophils # (Auto) 0.0 TH/MM3 0.1 TH/MM3 Basophils # (Auto) 0.0 TH/MM3 0.0 TH/MM3 CBC Comment DIFF FINAL DIFF FINAL Differential Comment Laboratory Tests Test 01/25/17 01/26/17 07:57 07:30 Sodium Level 140 MEQ/L 138 MEQ/L Potassium Level 3.3 MEQ/L 3.4 MEQ/L Chloride Level 108 MEQ/L 104 MEQ/L Carbon Dioxide Level 21.6 MEQ/L 25.0 MEQ/L Anion Gap 10 MEQ/L 9 MEQ/L Blood Urea Nitrogen 4 MG/DL 4 MG/DL Creatinine 0.33 MG/DL 0.42 MG/DL Estimat Glomerular Filtration 231 ML/MIN 175 ML/MIN Rate Random Glucose 77 MG/DL 80 MG/DL Calcium Level 7.7 MG/DL 8.2 MG/DL Total Bilirubin 0.3 MG/DL Aspartate Amino Transf 10 U/L (AST/SGOT) Alanine Aminotransferase 12 U/L (ALT/SGPT) Alkaline Phosphatase 46 U/L C-Reactive Protein 6.80 MG/DL Total Protein 6.5 GM/DL Albumin 3.0 GM/DL Microbiology Date/Time Procedure Status Source Growth 01/23/17 18:50 Aerobic Blood Culture - Preliminary Resulted Blood Peripheral NO GROWTH IN 3 DAYS 01/23/17 18:50 Anaerobic Blood Culture - Preliminary Resulted Blood Peripheral NO GROWTH IN 3 DAYS 01/23/17 18:55 Aerobic Blood Culture - Preliminary Resulted Blood Peripheral NO GROWTH IN 3 DAYS 01/23/17 18:55 Anaerobic Blood Culture - Preliminary Resulted Blood Peripheral NO GROWTH IN 3 DAYS 01/24/17 15:35 Received Stool Stool Pending 01/24/17 15:35 Cryptosporidium Exam - Final Complete Stool Stool NEGATIVE - NO CRYPTOSPORIDIUM ANTIGEN... 01/24/17 15:35 Stool Pus (CAPRI) - Final Complete Stool Stool NO WBC'S SEEN 01/24/17 15:35 Giardia Antigen (CAPRI) - Final Complete Stool Stool NEGATIVE - NO GIARDIA ANTIGEN DETECTE... Imaging Last Impressions Chest X-Ray 01/23/171828 Signed Impressions: Service Date/Time: Monday, January 23, 2017 18:30 - CONCLUSION: No acute disease. Ilya Cho MD Abdomen/Pelvis CT 01/23/171828 Signed Impressions: Service Date/Time: Monday, January 23, 2017 19:00 - CONCLUSION: 1. Abnormal left kidney with multiple ill-defined low attenuation areas most characteristic of infection and possible bacterial nephronia. There is no perinephric collection or obstruction. 2. Questionable minute renal oculi which may be artifactual. 3. Small left ovarian cyst. Ilya Cho MD Physical Exam GENERAL: This is a well-nourished, well-developed patient, in no apparent distress. SKIN: No rashes, ecchymoses or lesions. Cool and dry. HEAD: Atraumatic. Normocephalic. No temporal or scalp tenderness. EYES: Pupils equal round and reactive. Extraocular motions intact. No scleral icterus. No injection or drainage. ENT: Nose without bleeding, purulent drainage or septal hematoma. Throat without erythema, tonsillar hypertrophy or exudate. Uvula midline. Airway patent. NECK: Trachea midline. Supple, nontender, no meningeal signs. CARDIOVASCULAR: Regular rate and rhythm without murmurs, gallops, or rubs. RESPIRATORY: Clear to auscultation. Breath sounds equal bilaterally. No wheezes , rales, or rhonchi. GASTROINTESTINAL: Abdomen soft, non-tender, nondistended. No CV tenderness. MUSCULOSKELETAL: Extremities without clubbing, cyanosis, or edema. No joint tenderness, effusion, or edema noted. No calf tenderness. Negative Homans sign bilaterally. NEUROLOGICAL: Awake and alert. Grossly non focal. Psych: cooperative IV line sites with no e.o infection. Assessment & Plan Remarks Sepsis present on admission Pyelonephritis/Bacterial Nephrosis Partially treated with antibiotics (keflex and nitrofurantoin) prior to admission. Previous history of recurrent UTIs. H/o HSV2 and HPV Diarrhea present on admission: Likely antibiotic induced vs viral vs other infections. Cdiff negative. Stool OP and parasites pending. Recs: Discontinue ceftriaxone IV Start Levaquin oral Repeat CT abdomen pelvis with contrast repeat to assess status of infection. If worsening will reconsult . If CT abdomen pelvis improving and no fevers overnight on Levaquin will likely discharge in a.m. Follow cultures Follow clinically. Hopefully home soon on oral if continues to do well. Will try to obtain urine cultures at outside lab prior to start of antibiotics to help guide therapy. Plan discussed with patient as well as spouse in the room. Julia Hobbs MD Jan 26, 2017 17:16
[2017-01-26] MEDS ORDERED: IOHEXOL 350 MG/ML 10 ML VIAL (for RAD DIAG) IV ONE (18:06)
[2017-01-26] MEDS: LEVOFLOXACIN 500 MG TAB PO SCH (18:21)
[2017-01-26] MEDS: ENOXAPARIN SODIUM 40 MG/0.4 ML SYRINGE SQ SCH (20:06)
--- NOTE | 2017-01-26 20:20 | RADRPT ---
EXAM DATE/TIME: 01/26/2017 17:55 [facility] COMPARISON: CT ABDOMEN & PELVIS W CONTRAST, January 23, 2017, 19:00. INDICATIONS : Follow up possible Nephronia of left kidney. IV CONTRAST: 70 cc Omnipaque 350 (iohexol) IV ORAL CONTRAST: No oral contrast ingested. RADIATION DOSE: 7.81 CTDIvol (mGy) MEDICAL HISTORY : None SURGICAL HISTORY : None. None. ENCOUNTER: Subsequent ACUITY: 3 days PAIN SCALE: 0/10 LOCATION: abdomen TECHNIQUE: Volumetric scanning of the abdomen and pelvis was performed. Using automated exposure control and ad justment of the mA and/or kV according to patient size, radiation dose was kept as low as reasonably achievable to obtain optimal diagnostic quality images. DICOM format image data is available electro nically for review and comparison. FINDINGS: LOWER LUNGS: The visualized lower lungs are clear. LIVER: Homogeneous density without lesion. There is no dilation of the biliary tree. There is an intermedi ate density within the lumen of the dependent gallbladder which is a new finding compared to prior ex amination suggesting either sludge or a partially calcified stone.. SPLEEN: Stable round low density lesion posterior spleen measuring 12 mm, probably representing a cyst. PANCREAS: Within normal limits. KIDNEYS: Small bilateral renal stones upper pole no evidence of hydronephrosis. Prior CT scan demonstrated de creased enhancement in the cortex of the upper medial and lateral mid pole of the left kidney. Today 's CT scan is performed in a corticomedullary phase (prior CT was more in equilibrium phase) and both lesions are still discernible when taking into account the different timing of the contrast. No brennan dence of hydronephrosis. ADRENAL GLANDS: Within normal limits. VASCULAR: There is no aortic aneurysm. BOWEL/MESENTERY: The stomach, small bowel, and colon demonstrate no acute abnormality. There is no free intraperitone al air or fluid. ABDOMINAL WALL: Within normal limits. RETROPERITONEUM: There is no lymphadenopathy. BLADDER: No wall thickening or mass. REPRODUCTIVE: Low-density areas in the adnexa bilaterally probably representing ovarian cysts similar to prior exam ination. Moderate amount of free fluid in the right cul-de-sac measuring up to 2.6 cm, stable. Uter us is anteverted. INGUINAL: There is no lymphadenopathy or hernia. MUSCULOSKELETAL: Stable bone island posterior L1 vertebral body. CONCLUSION: 1. The 2 areas of decreased contrast enhancement in the left kidney are persistent when taking into a ccount different contrast delivery phase between the 2 exams. The appearance is nonspecific and diff erential considerations remain pyelonephritis, decreased vascular flow, and tumor. If further evalua tion is desired, this could be accomplished with multiphase postcontrast MRI. 2. Interval development of moderate density within the gallbladder lumen, representing either sludge or stones. 3. Moderate amount of free fluid in the pelvis and bilateral low density areas in the adnexa, stable from prior. 4. Bilateral solitary tiny calcifications in the upper pole kidney collecting system without evidence of hydronephrosis. Doyle Guerra MD on January 26, 2017 at 20:08 Board Certified Radiologist. This report was verified electronically.
[2017-01-27] VITALS: BP 133/87; PULSE 75; RESP 20; TEMP 98.9; O2SAT 99
[2017-01-27] MEDS: KETOROLAC TROMETHAMINE 30 MG/ML (IVP) VIAL IV PUSH SCH ×3 (00:30→11:14)
[2017-01-27 04:00] VITALS: BP 132/80; PULSE 78; RESP 20; TEMP 98; O2SAT 100
[2017-01-27] MEDS: SODIUM CHLOR 0.9% 1000 ML INJ 1,000 ML IV SCH (05:03)
[2017-01-27] MEDS: DIPHENOXYLATE/ATROPINE 2.5 MG/0.025 MG TAB PO SCH ×3 (06:00→11:14)
--- NOTE | 2017-01-27 07:26 | HHI.PR ---
Subjective Patient symptoms today denies fevers, but broke out in cold sweat several times overnight, soaking gown. Denies flank pain, nausea. Wants to go home. Objective Vital Signs Vital Signs Date Time Temp Pulse Resp B/P Pulse Ox O2 Delivery O2 Flow Rate FiO2 01/27/17 04:00 98.0 78 20 132/80 100 01/27/17 00:00 98.9 75 20 133/87 99 01/26/17 21:00 76 01/26/17 20:00 98.6 68 20 120/77 100 01/26/17 18:40 17 01/26/17 16:00 97.7 84 16 118/74 99 01/26/17 12:00 97.3 52 16 143/80 100 01/26/17 08:00 96.7 72 16 132/84 98 Intake & Output 01/27/17 01/27/17 07:00 19:00 # Voids 2 Result Diagram: 01/26/17 0730 01/26/17 0730 Objective Remarks NAD. A/O x 3 abd soft No CVAT Medications and IVs Current Medications Medications (Trade) Dose Ordered Sig/Arden Route Start Time Stop Time Status Last Admin (NS 1000 ml Inj) 1,000 ml @ 100 mls/hr Q10H IV 01/23/17 21:03 01/26/17 09:45 (NS Flush) 2 ml UNSCH PRN IV FLUSH 01/23/17 21:15 (NS Flush) 2 ml BID IV FLUSH 01/24/17 09:00 01/26/17 20:08 (Tylenol) 650 mg Q4H PRN PO 01/23/17 21:15 01/26/17 05:22 (Zofran Inj) 4 mg Q6H PRN IVP 01/23/17 21:15 01/25/17 13:11 (Lovenox Inj) 40 mg HS SQ 01/23/17 21:45 01/26/17 20:06 (Selina-Colace) 1 tab BID PO 01/24/17 09:00 (Milk Of Magnesia Liq) 30 ml Q12H PRN PO 01/23/17 21:15 (Senokot) 17.2 mg Q12H PRN PO 01/23/17 21:15 (Dulcolax Supp) 10 mg DAILY PRN RECTAL 01/23/17 21:15 (Lactulose Liq) 30 ml DAILY PRN PO 01/23/17 21:15 (Pepcid) 20 mg BID PO 01/24/17 09:00 01/26/17 20:06 (Toradol Inj) 15 mg Q6HR IV PUSH 01/24/17 12:00 01/27/17 00:30 (Lomotil Tab) 1 tab Q6HR PO 01/24/17 14:00 01/25/17 22:58 (Levaquin) 500 mg DAILY@11 PO 01/26/17 18:00 01/26/17 18:21 Assessment and Plan Problem List: (1) Pyelonephritis ICD Code: N12 Status: Acute Assessment and Plan -CT Reviewed. No evidence of abscess. -Recommend observing on oral antibiotics x 24 hours prior to discharge and will likely need a total of 2 weeks of antibiotics. But will defer to ID. -No Urological intervention required -Please call with questions. Maged Diop MD Jan 27, 2017 07:26
[2017-01-27 08:29] VITALS: BP 117/74; PULSE 67; RESP 18; TEMP 97.1; O2SAT 98
[2017-01-27] MEDS: SODIUM CHLORIDE 0.9% FLUSH 10 ML FLUSH IV FLUSH SCH (08:50)
[2017-01-27] MEDS: FAMOTIDINE 20 MG TAB PO SCH (08:51)
[2017-01-27] MEDS: DOCUSATE SODIUM 50 MG/SENNA 8.6 MG TAB PO SCH (08:52)
[2017-01-27] MEDS ORDERED: LEVA500T20 PO (09:48)
[2017-01-27] MEDS ORDERED: FAMO20TA2 PO (09:48)
[2017-01-27] MEDS: LEVOFLOXACIN 500 MG TAB PO SCH (11:13)
--- NOTE | 2017-01-27 15:50 | HHI.DS ---
Discharge Summary Admission Date Jan 23, 2017 at 20:33 Discharge Date: Jan 27, 2017 Admitting Diagnosis Sepsis, Kidney infection (1) Sepsis ICD Code: A41.9 (2) Pyelonephritis ICD Code: N12 (3) Nausea and vomiting ICD Code: R11.2 (4) Fever ICD Code: R50.9 (5) Hypokalemia ICD Code: E87.6 (6) Hyponatremia ICD Code: E87.1 Procedures See below Brief History - From Admission This is a 31-year-old female with past medical history of multiple UTIs in the past. The patient states that approximately 1 week she started having fever and sweats the night, noticed some spotting from her vagina and initially thought that she could be , however she called her PMD who sent her to an outpatient lab to get a test and it was negative. The patient states that she also noticed some hematuria. She was started on Macrobid a couple days ago by her primary care physician, however she started feeling very nauseous, vomited a couple times, had fevers and chills. The patient presented to the emergency department earlier today and she was prescribed cephalexin and discharged home after she was not febrile, however she went home and starting feeling worst reason why she decided to come back. The patient otherwise denies any cough, chest pain, short of breath, feels nauseous but this has improved, denies abdominal pain. CBC/BMP: 01/26/17 0730 01/26/17 0730 Significant Findings Laboratory Tests Test 01/25/17 01/26/17 07:57 07:30 Red Blood Count 3.25 MIL/MM3 3.51 MIL/MM3 (4.00-5.30) (4.00-5.30) Hemoglobin 9.6 GM/DL 10.3 GM/DL (11.6-15.3) (11.6-15.3) Hematocrit 29.3 % 31.7 % (35.0-46.0) (35.0-46.0) Monocytes (%) (Auto) 11.3 % 9.4 % (0.0-8.0) (0.0-8.0) Monocytes # (Auto) 1.0 TH/MM3 (0-0.9) Potassium Level 3.3 MEQ/L 3.4 MEQ/L (3.5-5.1) (3.5-5.1) Chloride Level 108 MEQ/L (98-107) Blood Urea Nitrogen 4 MG/DL (7-18) 4 MG/DL (7-18) Creatinine 0.33 MG/DL 0.42 MG/DL (0.50-1.00) (0.50-1.00) Calcium Level 7.7 MG/DL 8.2 MG/DL (8.5-10.1) (8.5-10.1) Aspartate Amino Transf 10 U/L (15-37) (AST/SGOT) C-Reactive Protein 6.80 MG/DL (0.00-0.30) Albumin 3.0 GM/DL (3.4-5.0) PE at Discharge GENERAL: This is a well-nourished, well-developed patient, in no apparent distress. SKIN: No rashes, warm and dry HEAD: Atraumatic. Normocephalic. EYES: Pupils equal round and reactive. Extraocular motions intact. No scleral icterus. ENT: Nose without bleeding, or drainage, Airway patent. NECK: Trachea midline. Supple CARDIOVASCULAR: Regular rate and rhythm without murmurs, gallops, or rubs. RESPIRATORY: Fair air entry bilaterally. No wheezes, rales, or rhonchi. GASTROINTESTINAL: Abdomen soft, non-tender, nondistended. Positive bowel sounds MUSCULOSKELETAL: Extremities without clubbing, cyanosis, or edema. Pedal pulses appreciated NEUROLOGICAL: Awake and alert. Moves all extremity. Normal speech.no focal neurological deficit Hospital Course 31 years old female admitted with Sepsis mostly due to urine infection/ pyelonephritis Nausea vomiting due to above ,Dehydration with Hypokalemia and hyponatremia Patient started on iv fluid antibiotic, urology and ID consulted GC and Chlamydia antigen pending CT abdomen and pelvis as described above shows abnormal left kidney with multiple ill-defined low-attenuation areas most characteristic of infection and possible bacterial nephronia. Continue IV antibiotics, status post IV vancomycin and IV Zosyn Continue supportive therapy with IV fluids, Tylenol and Zofran as needed. Follow-up blood cultures obtained in the emergency department. Urology and ID following Antiemetic Replete electrolytes when necessary GI prophylaxis:PPI DVT prophylaxis: SCDs, Lovenox subcutaneous. On the discharge Discussed with ID, symptom improved patient will be discharged on Levaquin for 2 weeks to follow up with urology and ID Dr. Wilks Pt Condition on Discharge: Good Discharge Disposition: Discharge Home Discharge Time: <= 30 minutes Discharge Instructions DIET: Follow Instructions for: Heart Healthy Diet Activities you can perform: Weight Bearing as Julieta Follow up Referrals: Infectious Disease - 10 Days with Samia Wilks MD PCP Follow-up - 1 Week Urology - 10 Days with Maged Diop MD New Medications: Famotidine (Famotidine) 20 Mg Tab 20 MG PO BID GI #60 TAB Levofloxacin (Levaquin) 500 Mg Tablet 500 MG PO DAILY@11 infection #14 TAB Continued Medications: Fluoxetine (Fluoxetine) 10 Mg Tab 10 MG PO DAILY #30 Ref 0 TAB Rubi Samuels MD Jan 27, 2017 15:50
== END 2017-01-27 12:49 | disposition home or self-care (01) | DRG 872 ==
LOC: NEPD 16:37 → NEDA 20:33 → N05A 23:55
PROVIDERS: ADMIT Hospitalist; ATTEND Hospitalist
DX: A41.9 Sepsis, unspecified organism (principal); E87.1 Hypo-osmolality and hyponatremia; N10 Acute pyelonephritis; Z87.440 Personal history of urinary (tract) infections; E87.6 Hypokalemia; R19.7 Diarrhea, unspecified; N94.3 Premenstrual tension syndrome; Z80.3 Family history of malignant neoplasm of breast
CPT/HCPCS: 71010; 74177; 80048; 80053; 81001; 83605; 83690; 84703; 85025; 85610; 85730; 86140; 87040; 87205; 87328; 87329; 87493; 87506; 96361; 96365; 96374; 96375; J0696; J1650; J1885; J2405; J2543; J2765; J3370; J7030; J7050; Q9967